=== PATIENT | female | born 1955 | race African-American/Black ===

== ENCOUNTER 2016-12-04 12:54 | Emergency (ER) | payer BC ==
[2016-12-04] MEDS ORDERED: ONDANSETRON HCL INJ/PF 4 MG/2 ML SDV IV ONE (13:15)
[2016-12-04] MEDS ORDERED: NORMAL SALINE 1000 ML 1,000 ML IV PRN (13:15)
--- NOTE | 2016-12-04 13:17 | ER Document Report ---
ED Medical Screen (RME) - General Chief Complaint: Breathing Difficulty Stated Complaint: WEAKNESS/VOMITING Time Seen by Provider: 12/04/16 13:14 Notes: Patient states for approximately 7-8 days she has had increasing weakness dizziness and vomiting. She is also had right upper quadrant abdominal pain. She has had black tarry stool and is been vomiting coffee-ground looking material. She states she drinks 2-3 beers every day. She denies hard liquor. She states she does smoke cigarettes but does not use any marijuana or drugs. She states she has had a previous cholecystectomy. She denies any problems with urination. TRAVEL OUTSIDE OF THE [place] IN LAST 30 DAYS: No - Related Data Allergies/Adverse Reactions: No Known Allergies Allergy (Verified 12/04/16 13:08) Past Medical History - Social History Chew tobacco use (# tins/day): No Frequency of alcohol use: Heavy Drug Abuse: None - Past Medical History Cardiac Medical History: Reports: Hx Hypertension Renal/ Medical History: Denies: Hx Peritoneal Dialysis Psychiatric Medical History: Reports: Hx Depression Past Surgical History: Reports: Hx Cholecystectomy - Immunizations Hx Diphtheria, Pertussis, Tetanus Vaccination: Yes Physical Exam - Vital signs Vitals: Temp Pulse Resp BP Pulse Ox 98.4 F 108 H 16 163/84 H 98 12/04/16 12:58 12/04/16 12:58 12/04/16 12:58 12/04/16 12:58 12/04/16 12:58 Course - Vital Signs Vital signs: Temp Pulse Resp BP Pulse Ox 98.4 F 108 H 16 163/84 H 98 12/04/16 12:58 12/04/16 12:58 12/04/16 12:58 12/04/16 12:58 12/04/16 12:58
[2016-12-04 14:22] LABS: APPEARANCE,URINE CLOUDY; BILIRUBIN,URINE NEGATIVE (NEGATIVE); GLUCOSE, URINE NEGATIVE (NEGATIVE); KETONES,URINE 20 mg/dL (NEGATIVE); LEUKOCYTE ESTERASE,URINE TRACE (NEGATIVE); NITRITE,URINE NEGATIVE (NEGATIVE); PROTEIN,URINE 100 mg/dL (NEGATIVE); URINE SPECIFIC GRAVITY 1.016
[2016-12-04 14:44] LABS: ABSOLUTE LYMPHOCYTES (AUTO) 1.4 10^3/uL (0.5-4.7); ABSOLUTE MONOCYTES (AUTO) 0.4 10^3/uL (0.1-1.4); ABSOLUTE NEUT (AUTO) 4.8 10^3/uL (1.7-8.2); BASOPHILS % (AUTO) 0.4 % (0-2); EOSINOPHILS % (AUTO) 0.1 % (0-6); HEMATOCRIT 43.9 % (36.0-47.0); HEMOGLOBIN 15.1 g/dL (12.0-15.5); HGB HCT DIFFERENCE 1.4; LYMPHOCYTES % (AUTO) 20.8 % (13-45); MEAN CORPUSCULAR HEMOGLOBIN 35.8 pg (27.0-33.4); MEAN CORPUSCULAR HGB CONC 34.3 g/dL (32.0-36.0); MEAN CORPUSCULAR VOLUME 104 fl (80-97); MONOCYTES % (AUTO) 6.2 % (3-13); RED BLOOD COUNT 4.21 10^6/uL (3.72-5.28); RED CELL DISTRIBUTION WIDTH 14.1 % (11.5-14.0); SEGMENTED NEUTROPHILS % (AUTO) 72.5 % (42-78); WHITE BLOOD COUNT 6.6 10^3/uL (4.0-10.5)
[2016-12-04 15:01] LABS: ALANINE AMINOTRANSFERASE 161 U/L (9-52); ALBUMIN 5.2 g/dL (3.5-5.0); ALKALINE PHOSPHATASE 255 U/L (38-126); ASPARTATE AMINO TRANSFERASE 517 U/L (14-36); BILIRUBIN,DIRECT 0.8 mg/dL (0.0-0.4); BILIRUBIN,TOTAL 1.4 mg/dL (0.2-1.3); BLOOD UREA NITROGEN 9 mg/dL (7-20); CALCIUM 9.6 mg/dL (8.4-10.2); CHLORIDE 98 mmol/L (98-107); GLUCOSE 81 mg/dL (75-110); LIPASE 109.2 U/L (23-300); TOTAL PROTEIN 9.1 g/dL (6.3-8.2)
[2016-12-04 15:10] LABS: CARBON DIOXIDE 18 mmol/L (22-30); SODIUM 138.5 mmol/L (137-145)
[2016-12-04 15:14] LABS: ANION GAP 23 (5-19)
--- NOTE | 2016-12-04 15:22 | ER Document Report ---
ED GI/ - General Information source: Patient TRAVEL OUTSIDE OF THE [place] IN LAST 30 DAYS: No - HPI Patient complains to provider of: Abdominal pain Onset: Other - see narrative Location: [facility] Associated symptoms: Other - see narrative <CHELITA RIDDLE - Last Filed: 12/04/16 15:16> <CADE AGUILAR - Last Filed: 12/04/16 17:46> - General Chief Complaint: Breathing Difficulty Stated Complaint: WEAKNESS/VOMITING Time Seen by Provider: 12/04/16 13:14 Notes: Patient is a 61 year old chronic alcoholic that presents to the emergency department today with complaints of dizziness x8 days. Patient states she began vomiting two days ago and noticed it was dark in color. Patient states today she also noticed that the diarrhea she has been having for the last few days turned from a yellowish color to a dark color. Patient also mentions that she has associated right upper quadrant pain. Patient states she has not been using any pepto bismol. (CHELITA RIDDLE) - Related Data Allergies/Adverse Reactions: No Known Allergies Allergy (Verified 12/04/16 13:08) Past Medical History - General Information source: Patient, [facility] Records - Social History Smoking Status: Current Every Day Smoker Cigarette use (# per day): Yes Chew tobacco use (# tins/day): No Frequency of alcohol use: Heavy Drug Abuse: None Family History: Reviewed & Not Pertinent Patient has suicidal ideation: No Patient has homicidal ideation: No - Past Medical History Cardiac Medical History: Reports: Hx Hypertension GI Medical History: Reports: Other - Hx of liver disease Psychiatric Medical History: Reports: Hx Depression Past Surgical History: Reports: Hx Cholecystectomy - Immunizations Hx Diphtheria, Pertussis, Tetanus Vaccination: Yes <CHELITA RIDDLE - Last Filed: 12/04/16 15:16> Review of Systems - Review of Systems Constitutional: No symptoms reported EENT: No symptoms reported Cardiovascular: See HPI, Dizziness Respiratory: No symptoms reported Gastrointestinal: See HPI, Abdominal pain, Diarrhea, Vomiting, Black stools Genitourinary: No symptoms reported Female Genitourinary: No symptoms reported Musculoskeletal: No symptoms reported Skin: No symptoms reported Hematologic/Lymphatic: No symptoms reported Neurological/Psychological: No symptoms reported -: Yes All other systems reviewed and negative <CHELITA RIDDLE - Last Filed: 12/04/16 15:16> Physical Exam <CHELITA RIDDLE - Last Filed: 12/04/16 15:16> <CADE AGUILAR - Last Filed: 12/04/16 17:46> - Vital signs Vitals: Temp Pulse Resp BP Pulse Ox 98.4 F 108 H 16 163/84 H 98 12/04/16 12:58 12/04/16 12:58 12/04/16 12:58 12/04/16 12:58 12/04/16 12:58 - Notes Notes: Physical Exam: General: Alert, appears well. HEENT: Normocephalic. Atraumatic. PERRL. Extraocular movements intact. Oropharynx clear. Neck: Supple. Non-tender. Respiratory: No respiratory distress. Clear and equal breath sounds bilaterally. Cardiovascular: Regular rate and rhythm. Abdominal: Soft, right upper quadrant tenderness with palpation. No distension. Normal Bowel Sounds. Back: Non-tender. No deformity or step off. Extremities: Moves all four extremities. Upper extremities: Normal inspection. Normal ROM. Lower extremities: Normal inspection. No edema. Normal ROM. Neurological: Normal cognition. AAOx4. Normal speech. Psychological: Normal affect. Anxious. Skin: Warm. Dry. Normal color. (CHELITA RIDDLE) Course - Laboratory Result Diagrams: 12/04/16 14:23 12/04/16 14:23 <[email or web address] - Last Filed: 12/04/16 15:16> - Laboratory Result Diagrams: 12/04/16 14:23 12/04/16 14:23 - Consults Dr. Redding Time consulted: 17:35 Consulted provider: follow-up in office <CADE AGUILAR - Last Filed: 12/04/16 17:46> - Re-evaluation Re-evalutation: 12/04/16 17:32 The patient had stated she was vomiting black liquid and had a black stool today. Her Hemoccult stool was negative. Her hemoglobin is 15.1, the same that it was in January 2016. Her liver enzymes are much higher than last January, most likely due to her alcohol consumption. It is unlikely she has a bleeding problem at this time. (CADE AGUILAR) - Vital Signs Vital signs: Temp Pulse Resp BP Pulse Ox 98.4 F 108 H 16 170/96 H 97 12/04/16 12:58 12/04/16 12:58 12/04/16 12:58 12/04/16 16:03 12/04/16 16:03 - Laboratory Laboratory results interpreted by me: 12/04/16 12/04/16 12/04/16 13:47 14:23 14:23 MCV 104 H MCH 35.8 H RDW 14.1 H Plt Count 117 L Carbon Dioxide 18 L Anion Gap 23 H Total Bilirubin 1.4 H Direct Bilirubin 0.8 H AST 517 H ALT 161 H Alkaline Phosphatase 255 H Total Protein 9.1 H Albumin 5.2 H Urine Protein 100 H Urine Ketones 20 H Urine Blood SMALL H Urine Urobilinogen 2.0 H Ur Leukocyte Esterase TRACE H Discharge <CHELITA RIDDLE - Last Filed: 12/04/16 15:16> <CADE AGUILAR - Last Filed: 12/04/16 17:46> - Discharge Clinical Impression: Hepatitis, Right upper quadrant abdominal pain Condition: Stable Disposition: HOME, SELF-CARE Additional Instructions: Alcoholic Hepatitis: You probably have "alcoholic hepatitis". Additional tests will be done to look for other potential causes of your hepatitis You have inflammation of the liver caused by alcohol. Symptoms can include malaise, fatigue, lack of appetite, nausea and vomiting, dark urine, and jaundice. In the long run, alcohol damages the liver to cause cirrhosis. There is no cure for alcoholic hepatitis. The inflammation will go away if you stop drinking. While you are ill, you may receive medication to make you more comfortable. Do not drink alcohol, and don't take any drug or medication not approved by your doctor. Rest and try to eat a healthy diet. Call the doctor if vomiting or abdominal pain become severe. Your blood levels were normal and unchanged from January of last year. Your stool specimen was negative for blood. It is unlikely that you have had any bleeding from your gastrointestinal tract. Your evaluation does indicate inflammation of the liver, called hepatitis. Your hepatitis is most likely caused by alcohol consumption. STOP DRINKING ALCOHOL. FOLLOW UP WITH DR. REDDING IN THE OFFICE. RETURN TO THE EMERGENCY ROOM IF ANY NEW OR WORSENING SYMPTOMS. Forms: Return to Work Referrals: АЛЕКСАНДР REDDING MD [Primary Care Provider] - Follow up in 3-5 days Scribe Attestation: 12/04/16 17:43 I personally performed the services described in the documentation, reviewed and edited the documentation which was dictated to the scribe in my presence, and it accurately records my words and actions. (CADE AGUILAR) Scribe Documentation - Scribe Written by Scribe:: Lesli Arevalo, 12/04/2016 1535 acting as scribe for :: Fabrizio <CHELITA RIDDLE - Last Filed: 12/04/16 15:16>
[2016-12-04 15:29] LABS: ADD ON TESTING BLD IN LAB ACKNOWLEDGE
[2016-12-04 15:38] LABS: PROTHROMBIN TIME 13.5 SEC (11.4-15.4)
[2016-12-04 15:50] LABS: ALCOHOL 55 mg/dL (NONE DETECTED)
[2016-12-04 17:49] VITALS: BP 167/100
== END 2016-12-04 17:50 | disposition home or self-care (01) ==
LOC: ER 12:54
DX: K75.9 Inflammatory liver disease, unspecified (principal); R10.11 Right upper quadrant pain; R06.00 Dyspnea, unspecified; R42 Dizziness and giddiness; R11.10 Vomiting, unspecified; F17.210 Nicotine dependence, cigarettes, uncomplicated; I10 Essential (primary) hypertension; Z90.49 Acquired absence of other specified parts of digestive tract
CPT/HCPCS: 99285; 96361; 96374; 36415; 80307; 83690; 85025; 85610; 82272; 80053; 81001; J2405; J7030

== ENCOUNTER 2018-04-16 08:43 | Inpatient (IN) | payer SELFPAY ==
--- NOTE | 2018-04-16 09:36 | ER Document Report ---
ED General - General Chief Complaint: Abdominal Pain Stated Complaint: NAUSEA Time Seen by Provider: 04/16/18 09:14 Notes: Patient is a 63-year-old female who is complaining of problems with her digestion. When pressed on that complaint, she says that she is having a hard time having bowel movements and is constipated and that is why she says she has digestive problems. She says she is been taking Metamucil with no relief of her symptoms. She did have a very small strained bowel movement this morning. She complains of pain in her "liver" but points to her epigastrium for about 3 weeks. She has had her gallbladder removed. She feels weak all day long. Patient has a history of depression for which she is seen at [facility] and is on some medication but does not know the name, believed to be trazodone 50 mg to take at bedtime. She says she has vomited a couple times during the past week. No blood in her stools. Has frequent urination. Denies any fevers. For her blood pressure, patient is on lisinopril with HCTZ. Patient has not had any alcohol for 45 days. Still smokes 4 or 5 cigarettes a day. TRAVEL OUTSIDE OF THE [place] IN LAST 30 DAYS: No - Related Data Allergies/Adverse Reactions: No Known Allergies Allergy (Verified 04/16/18 08:49) Past Medical History - Social History Smoking Status: Current Every Day Smoker Family History: Reviewed & Not Pertinent Patient has suicidal ideation: No Patient has homicidal ideation: No - Past Medical History Cardiac Medical History: Reports: Hx Hypertension Endocrine Medical History: Denies: Hx Diabetes Mellitus Type 1, Hx Diabetes Mellitus Type 2 Psychiatric Medical History: Reports: Hx Depression Past Surgical History: Reports: Hx Cholecystectomy - Immunizations Hx Diphtheria, Pertussis, Tetanus Vaccination: Yes Review of Systems - Review of Systems Notes: REVIEW OF SYSTEMS: CONSTITUTIONAL : Denies fever. EENT: Denies eye, ear, nose or mouth or throat pain or other symptoms. CARDIOVASCULAR: Denies chest pain. RESPIRATORY: Denies cough, chest congestion, or shortness of breath. GASTROINTESTINAL: See HPI. GENITOURINARY: Denies difficulty or painful urinating, blood in urine. Does urinate frequently. MUSCULOSKELETAL: Denies back or neck pain. Denies joint pain or swelling. SKIN: Denies rash or skin lesions. NEUROLOGICAL: Denies LOC or altered mental status. Denies headache. Denies sensory loss or motor deficits. ALL OTHER SYSTEMS REVIEWED AND NEGATIVE. Physical Exam - Vital signs Vitals: Temp Pulse Resp BP Pulse Ox 97.6 F 94 18 88/51 L 100 04/16/18 08:50 04/16/18 08:50 04/16/18 08:50 04/16/18 08:50 04/16/18 08:50 Interpretation: Normal Notes: PHYSICAL EXAMINATION: GENERAL: Well-appearing, in no acute distress. Blood pressure 88/51. HEAD: Atraumatic, normocephalic. EYES: Pupils equal round and reactive to light, extraocular movements intact. ENT: oropharynx clear without exudates. Moist mucous membranes. NECK: Normal range of motion, supple. LUNGS: Breath sounds clear and equal bilaterally. HEART: Regular rate and rhythm without murmurs. ABDOMEN: Soft, nontender. No guarding or rebound. No masses. BACK: No tenderness throughout entire back. EXTREMITIES: Normal range of motion without pain. NEUROLOGICAL: Normal speech, normal gait. Normal sensory, motor, and reflex exams. Awake, alert, and oriented x3. Cranial nerves normal. PSYCH: Normal mood, normal affect. SKIN: Warm, dry, no rashes. Course - Re-evaluation Re-evalutation: 04/16/18 11:51 Patient's blood pressure responded quickly to some saline IV. It went up to about 110 systolic and stayed in that area the rest of the time the patient was here in the department. Labs came back showing blood sugar of over 600. Lipase in the mid 400s. Sodium and chloride low. Call Dr. Iraheta who accepted the patient and admit to telemetry. - Vital Signs Vital signs: Temp Pulse Resp BP Pulse Ox 97.6 F 94 19 103/59 L 100 04/16/18 08:50 04/16/18 08:50 04/16/18 12:31 04/16/18 12:31 04/16/18 12:31 - Laboratory Result Diagrams: 04/16/18 10:20 04/16/18 10:20 Laboratory results interpreted by me: 04/16/18 04/16/18 04/16/18 10:20 10:20 10:45 WBC 12.0 H MCV 98 H Absolute Neutrophils 8.6 H Sodium 127.7 L Chloride 85 L BUN 35 H Est GFR ( Amer) 58 L Est GFR (Non-Af Amer) 48 L Glucose 636 H* Calcium 11.9 H Direct Bilirubin 0.5 H AST 44 H Alkaline Phosphatase 141 H Lipase 464.5 H Urine Glucose (UA) >=500 H Urine Ketones TRACE H Ur Leukocyte Esterase SMALL H Urine Ascorbic Acid 40 H - EKG Interpretation by Nc EKG shows normal: Sinus rhythm Rate: Normal Critical Care Note - Critical Care Note Total time excluding time spent on procedures (mins): 30 Discharge - Discharge Clinical Impression: Hyperglycemia, Hyponatremia, Hypotension Condition: Stable Disposition: ADMITTED INPATIENT Admitting Provider: [facility] Unit Admitted: Telemetry
--- NOTE | 2018-04-16 10:26 | RADIOLOGY REPORT (SQ) ---
EXAM DESCRIPTION: CHEST 2 VIEWS COMPLETED DATE/TIME: 04/16/2018 10:02 am REASON FOR STUDY: Epigastric pain, smoker COMPARISON: 05/10/2009 EXAM PARAMETERS: NUMBER OF VIEWS: two views TECHNIQUE: Digital Frontal and Lateral radiographic views of the chest acquired. RADIATION DOSE: NA LIMITATIONS: none FINDINGS: LUNGS AND PLEURA: No opacities, masses or pneumothorax. No pleural effusion. MEDIASTINUM AND HILAR STRUCTURES: No masses or contour abnormalities. HEART AND VASCULAR STRUCTURES: Heart normal size. No evidence for failure. BONES: No acute findings. HARDWARE: None in the chest. OTHER: No other significant finding. IMPRESSION: NO ACUTE RADIOGRAPHIC FINDING IN THE CHEST. TECHNICAL DOCUMENTATION: JOB ID: [id number]- All Rights Reserved Reading location - IP/workstation name: [email or web address]
[2018-04-16] MEDS: NORMAL SALINE 1000 ML 1,000 ML IV PRN ×3 (10:32→14:40)
[2018-04-16 10:44] LABS: ABSOLUTE BASOPHILS # (AUTO) 0.1 10^3/uL (0.0-0.2); ABSOLUTE EOSINOPHILS # (AUTO) 0.4 10^3/uL (0.0-0.6); ABSOLUTE LYMPHOCYTES (AUTO) 2.3 10^3/uL (0.5-4.7); ABSOLUTE MONOCYTES (AUTO) 0.5 10^3/uL (0.1-1.4); ABSOLUTE NEUT (AUTO) 8.6 10^3/uL (1.7-8.2); BASOPHILS % (AUTO) 0.7 % (0-2); EOSINOPHILS % (AUTO) 3.4 % (0-6); HEMATOCRIT 45.1 % (36.0-47.0); HEMOGLOBIN 15.3 g/dL (12.0-15.5); LYMPHOCYTES % (AUTO) 19.4 % (13-45); MEAN CORPUSCULAR HEMOGLOBIN 33.4 pg (27.0-33.4); MEAN CORPUSCULAR HGB CONC 33.9 g/dL (32.0-36.0); MEAN CORPUSCULAR VOLUME 98 fl (80-97); MONOCYTES % (AUTO) 4.5 % (3-13); PLATELET COUNT 201 10^3/uL (150-450); RED BLOOD COUNT 4.59 10^6/uL (3.72-5.28); TOTAL CELLS COUNTED % (AUTO) 100 %
[2018-04-16 10:51] LABS: INTERNATIONAL RATION (INR) 1.08; PROTHROMBIN TIME 14.5 SEC (11.4-15.4)
[2018-04-16 11:05] LABS: ALANINE AMINOTRANSFERASE 29 U/L (9-52); ALBUMIN 4.5 g/dL (3.5-5.0); ALKALINE PHOSPHATASE 141 U/L (38-126); ANION GAP 16 (5-19); ASPARTATE AMINO TRANSFERASE 44 U/L (14-36); BILIRUBIN,DIRECT 0.5 mg/dL (0.0-0.4); BILIRUBIN,TOTAL 0.8 mg/dL (0.2-1.3); BLOOD UREA NITROGEN 35 mg/dL (7-20); CALCIUM 11.9 mg/dL (8.4-10.2); CARBON DIOXIDE 27 mmol/L (22-30); CHLORIDE 85 mmol/L (98-107); LIPASE 464.5 U/L (23-300); POTASSIUM 4.6 mmol/L (3.6-5.0); SODIUM 127.7 mmol/L (137-145); TOTAL PROTEIN 7.9 g/dL (6.3-8.2)
[2018-04-16 11:06] LABS: ALCOHOL < 10 mg/dL (NONE DETECTED)
[2018-04-16 11:12] LABS: APPEARANCE,URINE CLOUDY; BILIRUBIN,URINE NEGATIVE (NEGATIVE); COLOR,URINE AMBER; GLUCOSE, URINE >=500 mg/dL (NEGATIVE); KETONES,URINE TRACE mg/dL (NEGATIVE); LEUKOCYTE ESTERASE,URINE SMALL (NEGATIVE); NITRITE,URINE NEGATIVE (NEGATIVE); PROTEIN,URINE NEGATIVE (NEGATIVE); URINE SPECIFIC GRAVITY 1.018; UROBILINOGEN,URINE NEGATIVE mg/dL (<2.0)
[2018-04-16 11:14] LABS: GLUCOSE 636 mg/dL (75-110)
[2018-04-16 11:17] LABS: CREATINE KINASE MB 3.51 ng/mL (<4.55)
[2018-04-16 11:18] LABS: TROPONIN I 0.042 ng/mL
[2018-04-16 11:23] LABS: URINE AMPHETAMINES SCREEN NEGATIVE; URINE BARBITURATES SCREEN NEGATIVE; URINE BENZODIAZEPINES SCREEN NEGATIVE; URINE COCAINE SCREEN NEGATIVE; URINE MARIJUANA (THC) SCREEN NEGATIVE; URINE METHADONE SCREEN NEGATIVE; URINE PHENCYCLIDINE SCREEN NEGATIVE
[2018-04-16] MEDS ORDERED: INSULIN REG, HUMAN 100 UNIT/ML 3 ML VIAL (PYX) IV ONE (11:50)
--- NOTE | 2018-04-16 12:45 | EKG REPORT ---
SEVERITY:- BORDERLINE ECG - SINUS RHYTHM BORDERLINE PROLONGED QT INTERVAL : Confirmed by: Mathieu Dempsey MD 16-Apr-2018 12:44:13
[2018-04-16] MEDS ORDERED: INSULIN REG, HUMAN 100 UNIT/ML 3 ML VIAL (PYX) SUBCUT PRN (17:59)
[2018-04-16] MEDS ORDERED: DEXTROSE 40% GEL 15 GM TUBE PO PRN ×4 (17:59→20:54)
[2018-04-16] MEDS ORDERED: DEXTROSE 50%-WATER 25 GM/50 ML DISP.SYRIN IV PRN ×4 (17:59→20:54)
[2018-04-16] MEDS ORDERED: GLUCAGON,HUMAN RECOMB 1 MG INJ IM PRN ×2 (17:59→20:54)
--- NOTE | 2018-04-16 20:42 | PDOC H&P ---
History of Present Illness Admission Date/PCP: 04/16/18 12:05 АЛЕКСАНДР REDDING MD History of Present Illness: VELMA MACDONALD is a 63 year old female, she is very noncompliant the last office visit is over a year ago, she came to the emergency room for evaluation of abdominal pain, constipation she stated to the ED physician that she has been taking Metamucil without relief of her symptoms, she says she has liver pain but she pointed to the epigastrium, she has alcohol and tobacco use disorder, she stated that the last time she took alcohol was 45 days ago. In the emergency room she was evaluated she was found to have a low blood pressure and the blood sugar recorded was 636, she has no history of diabetes mellitus, also found was severe hyponatremia. When I saw her on the floor she looks extremely emaciated she has lost a lot of weight, the body mass index is 12, the weight loss could not be explained on the basis of diabetes by itself I suspected that she may have a malignancy of some sort especially with history of alcohol and tobacco abuse. I requested for CT abdomen and pelvis with IV contrast, it demonstrated fatty infiltration of the liver, slightly nodular contour suspicious for liver cirrhosis. The spleen and adrenal glands were unremarkable also found was multiple calcifications of the pancreas consistent with chronic pancreatitis the body and tail of the pancreas was atrophic there was a poorly defined hypodensity in the region of the pancreatic head that measured 1.8 x 2.3 cm findings was said to be suspicious for neoplasm there was extra hepatic biliary duct dilatation the kidneys are unremarkable there is a large amount of stool in the colon. The serum lipase was 464 not overly elevated. Past Medical History Cardiac Medical History: Reports: Hypertension Endocrine Medical History: Reports: Diabetes Mellitus Type 2 Psychiatric Medical History: Reports: Depression Past Surgical History Past Surgical History: Reports: Cholecystectomy Social History Smoking Status: Current Every Day Smoker Cigarettes Packs Per Day: 0.2 Cigars Per Day: 0 Pipes Per Day: 0 Number of Years Smokin Last Time Smoked: 04/16/2018 Frequency of Alcohol Use: Heavy Hx Recreational Drug Use: No Drugs: None Hx Prescription Drug Abuse: No - Advance Directive Resuscitation Status: Full Code Family History Family History: Reviewed & Not Pertinent Parental Family History Reviewed: Yes Children Family History Reviewed: Yes Sibling(s) Family History Reviewed.: Yes Medication/Allergy Home Medications: Lisinopril/Hydrochlorothiazide [Lisinopril-Hctz 20-25 mg Tab] 1 tab PO DAILY 04/16/18 Trazodone HCl [Desyrel 50 mg Tablet] 50 mg PO QHS 04/16/18 Allergies/Adverse Reactions: No Known Allergies Allergy (Verified 04/16/18 08:49) Physical Exam Vital Signs: Temp Pulse Resp BP Pulse Ox 98.8 F 82 18 97/60 L 98 04/16/18 19:51 04/16/18 19:51 04/16/18 19:51 04/16/18 19:51 04/16/18 19:51 Intake & Output 04/15/18 04/16/18 04/17/18 06:59 06:59 06:59 Intake Total 1999 Balance 1999 Weight 33.8 kg General appearance: PRESENT: no acute distress, thin Eye exam: PRESENT: PERRLA Respiratory exam: PRESENT: clear to auscultation neelam Cardiovascular exam: PRESENT: +S1, +S2 GI/Abdominal exam: PRESENT: soft Neurological exam: PRESENT: alert Results Laboratory Results: 04/16/18 10:20 04/16/18 10:20 04/16/18 04/16/18 04/16/18 10:20 10:20 10:20 WBC 12.0 H RBC 4.59 Hgb 15.3 Hct 45.1 MCV 98 H MCH 33.4 MCHC 33.9 RDW 13.0 Plt Count 201 Seg Neutrophils % 72.0 Lymphocytes % 19.4 Monocytes % 4.5 Eosinophils % 3.4 Basophils % 0.7 Absolute Neutrophils 8.6 H Absolute Lymphocytes 2.3 Absolute Monocytes 0.5 Absolute Eosinophils 0.4 Absolute Basophils 0.1 Sodium 127.7 L Potassium 4.6 Chloride 85 L Carbon Dioxide 27 Anion Gap 16 BUN 35 H Creatinine 1.14 Est GFR ( Amer) 58 L Est GFR (Non-Af Amer) 48 L Glucose 636 H* Lactic Acid 1.8 Calcium 11.9 H Total Bilirubin 0.8 AST 44 H ALT 29 Alkaline Phosphatase 141 H Total Protein 7.9 Albumin 4.5 Lipase 464.5 H Urine Color Urine Appearance Urine pH Ur Specific [place] Urine Protein Urine Glucose (UA) Urine Ketones Urine Blood Urine Nitrite Ur Leukocyte Esterase Urine WBC (Auto) Urine RBC (Auto) 04/16/18 10:45 WBC RBC Hgb Hct MCV MCH MCHC RDW Plt Count Seg Neutrophils % Lymphocytes % Monocytes % Eosinophils % Basophils % Absolute Neutrophils Absolute Lymphocytes Absolute Monocytes Absolute Eosinophils Absolute Basophils Sodium Potassium Chloride Carbon Dioxide Anion Gap BUN Creatinine Est GFR ( Amer) Est GFR (Non-Af Amer) Glucose Lactic Acid Calcium Total Bilirubin AST ALT Alkaline Phosphatase Total Protein Albumin Lipase Urine Color [place] Urine Appearance CLOUDY Urine pH 6.0 Ur Specific [place] 1.018 Urine Protein NEGATIVE Urine Glucose (UA) >=500 H Urine Ketones TRACE H Urine Blood NEGATIVE Urine Nitrite NEGATIVE Ur Leukocyte Esterase SMALL H Urine WBC (Auto) 15 Urine RBC (Auto) 3 04/16/18 10:20 CK-MB (CK-2) 3.51 Troponin I 0.042 Impressions: Chest X-Ray 04/16/18 09:34 IMPRESSION: NO ACUTE RADIOGRAPHIC FINDING IN THE CHEST. 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 She may need ERCP for diagnostic purposes (5) Hyponatremia Is this a current diagnosis for this admission?: Yes (6) Liver cirrhosis Qualifiers: Hepatic cirrhosis type: alcoholic cirrhosis Ascites presence: without ascites Qualified Code(s): K70.30 - Alcoholic cirrhosis of liver without ascites Is this a current diagnosis for this admission?: Yes (7) Alcohol abuse Is this a current diagnosis for this admission?: Yes (8) Chronic alcoholic pancreatitis Is this a current diagnosis for this admission?: Yes
[2018-04-16 21:37] LABS: ANION GAP 8 (5-19); BLOOD UREA NITROGEN 24 mg/dL (7-20); CALCIUM 10.7 mg/dL (8.4-10.2); CARBON DIOXIDE 26 mmol/L (22-30); CHLORIDE 98 mmol/L (98-107); SODIUM 132.4 mmol/L (137-145)
[2018-04-16 21:56] LABS: POTASSIUM 3.2 mmol/L (3.6-5.0)
--- NOTE | 2018-04-16 21:57 | RADIOLOGY REPORT (SQ) ---
EXAM DESCRIPTION: CT ABDOMEN PELVIS WITH IV CONTRAST COMPLETED DATE/TME: 04/16/2018 00:00 CLINICAL HISTORY: 63 years, Female, SIGNIFICANT WEIGHT LOSS COMPARISON: None. TECHNIQUE: [id number] Images stored on PACS. All CT scanners at this facility use dose modulation, iterative reconstruction, and/or weight based dosing when appropriate to reduce radiation dose to as low as reasonably achievable (ALARA). [facility]: Dose Right [facility]: CareDose [facility]: Dose Right [facility]: Teradose 4D [facility]: AVIA LIMITATIONS: None. FINDINGS: Limited evaluation of the lung bases is unremarkable. Osseous structures are grossly intact. Fatty infiltrative change to the liver. Slightly nodular contour to the liver for which early cirrhotic change is not excluded. The spleen, adrenal glands, are unremarkable. Multiple calcifications of the pancreas consistent with chronic pancreatitis. Atrophic appearance to the body and tail of the pancreas. There is significant motion artifact, degrading image quality. However, a poorly defined hypodensity in the region of the pancreatic head measuring approximately 1.8 x 2.6 cm is present. Findings are suspicious for neoplasm. There is extra hepatic biliary ductal dilatation. The patient is status post cholecystectomy. The kidneys are unremarkable. Large amount stool in the colon. No gross evidence for bowel obstruction. Normal appendix. No free air. Small amount of ascites. Distended, fluid-filled appearance to the endometrial canal. Clinical follow-up recommended. No free air. Nonenlarged but conspicuous periaortic lymph nodes.. IMPRESSION: Fatty infiltrate of change to the liver. Slightly nodular contour to the liver for tissue early cirrhotic change is not excluded. Atrophic appearance to the body and tail of the pancreas. Point defined hypodensity in the region of the pancreatic head. This could reflect complex pseudocyst or cystadenoma. An inflammatory process of the pancreas could also be considered. Correlate with pancreatic enzyme levels. Malignancy not excluded. There is biliary ductal dilatation. Multiple calcifications of the pancreas consistent with chronic pancreatitis. Given these findings, consider dedicated MRCP or ERCP for follow-up. In addition, there is distended, fluid-filled appearance to the endocervical canal. Gynecologic follow-up is recommended. Small volume of ascites. TECHNICAL DOCUMENTATION: Quality ID # [id number]: Final reports with documentation of one or more dose reduction techniques (e.g., Automated exposure control, adjustment of the mA and/or kV according to patient size, use of iterative reconstruction technique) copyright 2011 [employer]- All Rights Reserved
[2018-04-16 21:58] LABS: GLUCOSE 527 mg/dL (75-110)
[2018-04-16] MEDS: TRAZODONE HCL 50 MG TABLET PO SCH (22:06)
[2018-04-16] MEDS: NORMAL SALINE 100 ML with INSULIN REGULAR, HUMAN 100 UNIT IV PRN ×2 (22:22)
[2018-04-17 01:33] LABS: ANION GAP 8 (5-19); BLOOD UREA NITROGEN 24 mg/dL (7-20); CALCIUM 10.6 mg/dL (8.4-10.2); CARBON DIOXIDE 26 mmol/L (22-30); CHLORIDE 100 mmol/L (98-107); GLUCOSE 343 mg/dL (75-110); POTASSIUM 3.1 mmol/L (3.6-5.0); SODIUM 133.7 mmol/L (137-145)
[2018-04-17] MEDS: NORMAL SALINE 1000 ML 1,000 ML IV PRN ×3 (02:18→17:56)
[2018-04-17 07:16] LABS: ANION GAP 8 (5-19); BLOOD UREA NITROGEN 23 mg/dL (7-20); CALCIUM 10.5 mg/dL (8.4-10.2); CARBON DIOXIDE 26 mmol/L (22-30); CHLORIDE 106 mmol/L (98-107); GLUCOSE 147 mg/dL (75-110); POTASSIUM 3.3 mmol/L (3.6-5.0); SODIUM 139.8 mmol/L (137-145)
[2018-04-17 11:24] LABS: ANION GAP 7 (5-19); BLOOD UREA NITROGEN 20 mg/dL (7-20); CALCIUM 10.5 mg/dL (8.4-10.2); CARBON DIOXIDE 26 mmol/L (22-30); CHLORIDE 104 mmol/L (98-107); GLUCOSE 282 mg/dL (75-110); SODIUM 137.1 mmol/L (137-145)
[2018-04-17 11:28] LABS: POTASSIUM 2.9 mmol/L (3.6-5.0)
[2018-04-17] MEDS: POTASSIUM CHLORIDE 10 MEQ CAPSULE.ER PO SCH ×3 (14:48→21:47)
[2018-04-17 15:18] LABS: ANION GAP 7 (5-19); BLOOD UREA NITROGEN 18 mg/dL (7-20); CARBON DIOXIDE 25 mmol/L (22-30); CHLORIDE 103 mmol/L (98-107); GLUCOSE 318 mg/dL (75-110); SODIUM 134.8 mmol/L (137-145)
[2018-04-17 15:23] LABS: POTASSIUM 2.7 mmol/L (3.6-5.0)
[2018-04-17 17:45] LABS: ANION GAP 5 (5-19); BLOOD UREA NITROGEN 19 mg/dL (7-20); CALCIUM 10.4 mg/dL (8.4-10.2); CARBON DIOXIDE 30 mmol/L (22-30); CHLORIDE 105 mmol/L (98-107); GLUCOSE 96 mg/dL (75-110); SODIUM 139.8 mmol/L (137-145)
--- NOTE | 2018-04-17 18:00 | PDOC PROGRESS REPORT ---
Subjective Progress Note for:: 04/17/18 Subjective:: She was admitted yesterday, I had a long discussion with the patient about her prognosis and diagnosis, she has a mass in the pancreas most likely is neoplasm, there is associated hypercalcemia with a low serum PTH consistent with hypercalcemia of malignancy, the serum calcium today is normalized with hydration, she will need ERCP, GI consultation will be obtained Reason For Visit: HYPERGLYCEMIA,HYPONATREMIA,HYPOTENSION Physical Exam Vital Signs: Temp Pulse Resp BP Pulse Ox 98.7 F 78 18 108/54 L 97 04/17/18 14:33 04/17/18 14:33 04/17/18 14:33 04/17/18 14:33 04/17/18 14:33 Intake & Output 04/16/18 04/17/18 04/18/18 06:59 06:59 06:59 Intake Total 3537 2353 Balance 3537 2353 Weight 33.8 kg General appearance: PRESENT: no acute distress Eye exam: PRESENT: PERRLA Respiratory exam: PRESENT: clear to auscultation neelam Cardiovascular exam: PRESENT: +S1 GI/Abdominal exam: PRESENT: soft Neurological exam: PRESENT: alert Results Laboratory Results: 04/16/18 10:20 04/16/18 04/16/18 04/17/18 21:08 21:08 00:58 Sodium 132.4 L 133.7 L Potassium 3.2 L D 3.1 L Chloride 98 100 Carbon Dioxide 26 26 Anion Gap 8 8 BUN 24 H 24 H Creatinine 0.79 0.74 Est GFR ( Amer) > 60 > 60 Est GFR (Non-Af Amer) > 60 > 60 Glucose 527 H* 343 H Calcium 10.7 H 10.6 H PTH Intact 4.8 L 04/17/18 04/17/18 04/17/18 06:48 10:45 14:42 Sodium 139.8 137.1 134.8 L Potassium 3.3 L 2.9 L* 2.7 L* Chloride 106 104 103 Carbon Dioxide 26 26 25 Anion Gap 8 7 7 BUN 23 H 20 18 Creatinine 0.72 0.71 0.70 Est GFR ( Amer) > 60 > 60 > 60 Est GFR (Non-Af Amer) > 60 > 60 > 60 Glucose 147 H 282 H 318 H Calcium 10.5 H 10.5 H 10.0 PTH Intact 04/16/18 10:45 Clean Catch Midstream Urine Culture - Final Mixed Urogenital Olga 04/16/18 10:20 CK-MB (CK-2) 3.51 Troponin I 0.042 Impressions: Abdomen/Pelvis CT 04/16/18 00:00 IMPRESSION: Fatty infiltrate of change to the liver. Slightly nodular contour to the liver for tissue early cirrhotic change is not excluded. Atrophic appearance to the body and tail of the pancreas. Point defined hypodensity in the region of the pancreatic head. This could reflect complex pseudocyst or cystadenoma. An inflammatory process of the pancreas could also be considered. Correlate with pancreatic enzyme levels. Malignancy not excluded. There is biliary ductal dilatation. Multiple calcifications of the pancreas consistent with chronic pancreatitis. Given these findings, consider dedicated MRCP or ERCP for follow-up. In addition, there is distended, fluid-filled appearance to the endocervical canal. Gynecologic follow-up is recommended. Small volume of ascites. TECHNICAL DOCUMENTATION: Quality ID # 436: Final reports with documentation of one or more dose reduction techniques (e.g., Automated exposure control, adjustment of the mA and/or kV according to patient size, use of iterative reconstruction technique) copyright 2011 [employer]- All Rights Reserved Chest X-Ray 04/16/18 09:34 IMPRESSION: NO ACUTE RADIOGRAPHIC FINDING IN THE CHEST. 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 (2) Hyperosmolar non-ketotic state in patient with type 2 diabetes mellitus Is this a current diagnosis for this admission?: Yes Plan: Continue hydration (3) Newly diagnosed diabetes Is this a current diagnosis for this admission?: Yes Plan: Continue insulin drip (4) Pancreatic mass Is this a current diagnosis for this admission?: Yes Plan: Patient need ERCP (5) Hyponatremia Is this a current diagnosis for this admission?: Yes Plan: Corrected with hydration (6) Liver cirrhosis Qualifiers: Hepatic cirrhosis type: alcoholic cirrhosis Ascites presence: without ascites Qualified Code(s): K70.30 - Alcoholic cirrhosis of liver without ascites Is this a current diagnosis for this admission?: Yes (7) Alcohol abuse Is this a current diagnosis for this admission?: Yes (8) Chronic alcoholic pancreatitis Is this a current diagnosis for this admission?: Yes (9) Hypercalcemia Is this a current diagnosis for this admission?: Yes Plan: PTH low ,this is probably cancer related
[2018-04-17] MEDS ORDERED: NYSTATIN CREAM 15 GM TP PRN (18:14)
[2018-04-17 18:28] LABS: POTASSIUM 2.9 mmol/L (3.6-5.0)
[2018-04-17 21:40] LABS: ANION GAP 8 (5-19); BLOOD UREA NITROGEN 17 mg/dL (7-20); CALCIUM 10.3 mg/dL (8.4-10.2); CARBON DIOXIDE 24 mmol/L (22-30); CHLORIDE 104 mmol/L (98-107); GLUCOSE 260 mg/dL (75-110); POTASSIUM 3.7 mmol/L (3.6-5.0); SODIUM 136.1 mmol/L (137-145)
[2018-04-17] MEDS: TRAZODONE HCL 50 MG TABLET PO SCH (21:47)
[2018-04-17] MEDS: NORMAL SALINE 100 ML with INSULIN REGULAR, HUMAN 100 UNIT IV PRN ×2 (23:44)
[2018-04-18 01:11] LABS: ANION GAP 7 (5-19); BLOOD UREA NITROGEN 15 mg/dL (7-20); CALCIUM 10.3 mg/dL (8.4-10.2); CARBON DIOXIDE 25 mmol/L (22-30); CHLORIDE 108 mmol/L (98-107); GLUCOSE 147 mg/dL (75-110); POTASSIUM 3.8 mmol/L (3.6-5.0); SODIUM 140.2 mmol/L (137-145)
[2018-04-18 06:28] LABS: ANION GAP 6 (5-19); BLOOD UREA NITROGEN 14 mg/dL (7-20); CALCIUM 9.9 mg/dL (8.4-10.2); CARBON DIOXIDE 24 mmol/L (22-30); CHLORIDE 111 mmol/L (98-107); GLUCOSE 124 mg/dL (75-110); POTASSIUM 3.7 mmol/L (3.6-5.0); SODIUM 140.9 mmol/L (137-145)
[2018-04-18 10:00] LABS: ANION GAP 6 (5-19); BLOOD UREA NITROGEN 13 mg/dL (7-20); CALCIUM 10.2 mg/dL (8.4-10.2); CARBON DIOXIDE 22 mmol/L (22-30); CHLORIDE 112 mmol/L (98-107); GLUCOSE 174 mg/dL (75-110); SODIUM 140.3 mmol/L (137-145)
[2018-04-18] MEDS: NORMAL SALINE 1000 ML 1,000 ML IV PRN ×2 (13:27→21:16)
[2018-04-18 14:06] LABS: ANION GAP 8 (5-19); BLOOD UREA NITROGEN 13 mg/dL (7-20); CARBON DIOXIDE 23 mmol/L (22-30); CHLORIDE 108 mmol/L (98-107); GLUCOSE 236 mg/dL (75-110); POTASSIUM 4.1 mmol/L (3.6-5.0); SODIUM 139.3 mmol/L (137-145)
--- NOTE | 2018-04-18 15:48 | PDOC PROGRESS REPORT ---
Subjective Progress Note for:: 04/18/18 Subjective:: Patient was seen by the bedside, she has no new complaints Reason For Visit: HYPERGLYCEMIA,HYPONATREMIA,HYPOTENSION Physical Exam Vital Signs: Temp Pulse Resp BP Pulse Ox 98.5 F 85 18 96/57 L 100 04/18/18 04:05 04/18/18 14:00 04/18/18 04:05 04/18/18 04:05 04/18/18 04:05 Intake & Output 04/17/18 04/18/18 04/19/18 06:59 06:59 06:59 Intake Total 3537 3422 1010 Balance 3537 3422 1010 Weight 33.8 kg 62.9 kg General appearance: PRESENT: no acute distress Eye exam: PRESENT: PERRLA Respiratory exam: PRESENT: clear to auscultation neelam Cardiovascular exam: PRESENT: +S1, +S2 GI/Abdominal exam: PRESENT: soft Neurological exam: PRESENT: alert Results Laboratory Results: 04/16/18 10:20 04/18/18 13:15 04/17/18 04/17/18 04/18/18 17:05 21:15 00:42 Sodium 139.8 136.1 L 140.2 Potassium 2.9 L* 3.7 3.8 Chloride 105 104 108 H Carbon Dioxide 30 24 25 Anion Gap 5 8 7 BUN 19 17 15 Creatinine 0.70 0.63 0.65 Est GFR ( Amer) > 60 > 60 > 60 Est GFR (Non-Af Amer) > 60 > 60 > 60 Glucose 96 260 H 147 H Calcium 10.4 H 10.3 H 10.3 H 04/18/18 04/18/18 04/18/18 05:09 09:13 13:15 Sodium 140.9 140.3 139.3 Potassium 3.7 4.0 4.1 Chloride 111 H 112 H 108 H Carbon Dioxide 24 22 23 Anion Gap 6 6 8 BUN 14 13 13 Creatinine 0.67 0.62 0.69 Est GFR ( Amer) > 60 > 60 > 60 Est GFR (Non-Af Amer) > 60 > 60 > 60 Glucose 124 H 174 H 236 H Calcium 9.9 10.2 10.0 04/16/18 10:20 CK-MB (CK-2) 3.51 Troponin I 0.042 Impressions: Abdomen/Pelvis CT 04/16/18 00:00 IMPRESSION: Fatty infiltrate of change to the liver. Slightly nodular contour to the liver for tissue early cirrhotic change is not excluded. Atrophic appearance to the body and tail of the pancreas. Point defined hypodensity in the region of the pancreatic head. This could reflect complex pseudocyst or cystadenoma. An inflammatory process of the pancreas could also be considered. Correlate with pancreatic enzyme levels. Malignancy not excluded. There is biliary ductal dilatation. Multiple calcifications of the pancreas consistent with chronic pancreatitis. Given these findings, consider dedicated MRCP or ERCP for follow-up. In addition, there is distended, fluid-filled appearance to the endocervical canal. Gynecologic follow-up is recommended. Small volume of ascites. TECHNICAL DOCUMENTATION: Quality ID # 436: Final reports with documentation of one or more dose reduction techniques (e.g., Automated exposure control, adjustment of the mA and/or kV according to patient size, use of iterative reconstruction technique) copyright 2011 [employer]- All Rights Reserved Chest X-Ray 04/16/18 09:34 IMPRESSION: NO ACUTE RADIOGRAPHIC FINDING IN THE CHEST. 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, she would need insulin replacement therapy, start Lantus (2) Hyperosmolar non-ketotic state in patient with type 2 diabetes mellitus Is this a current diagnosis for this admission?: Yes Plan: Discontinue insulin drip, start Lantus (3) Newly diagnosed diabetes Is this a current diagnosis for this admission?: Yes (4) Pancreatic mass Is this a current diagnosis for this admission?: Yes Plan: She would need ERCP with tissue diagnosis (5) Hyponatremia Is this a current diagnosis for this admission?: Yes Plan: This is resolved (6) Liver cirrhosis Qualifiers: Hepatic cirrhosis type: alcoholic cirrhosis Ascites presence: without ascites Qualified Code(s): K70.30 - Alcoholic cirrhosis of liver without ascites Is this a current diagnosis for this admission?: Yes (7) Alcohol abuse Is this a current diagnosis for this admission?: Yes (8) Chronic alcoholic pancreatitis Is this a current diagnosis for this admission?: Yes (9) Hypercalcemia Is this a current diagnosis for this admission?: Yes Plan: Resolved with hydration, secondary to? Neoplasm of the pancreas
[2018-04-18 17:27] LABS: ANION GAP 6 (5-19); BLOOD UREA NITROGEN 15 mg/dL (7-20); CALCIUM 9.8 mg/dL (8.4-10.2); CARBON DIOXIDE 24 mmol/L (22-30); CHLORIDE 108 mmol/L (98-107); GLUCOSE 267 mg/dL (75-110); POTASSIUM 4.4 mmol/L (3.6-5.0)
[2018-04-18] MEDS: INSULIN LISPRO 100 UNIT/ML 3 ML VIAL SUBCUT PRN ×2 (17:41→21:08)
[2018-04-18] MEDS: TRAZODONE HCL 50 MG TABLET PO SCH (21:13)
[2018-04-18 21:39] LABS: ANION GAP 5 (5-19); BLOOD UREA NITROGEN 17 mg/dL (7-20); CALCIUM 9.6 mg/dL (8.4-10.2); CARBON DIOXIDE 23 mmol/L (22-30); CHLORIDE 110 mmol/L (98-107); GLUCOSE 327 mg/dL (75-110)
[2018-04-19 03:45] LABS: BLOOD UREA NITROGEN 14 mg/dL (7-20); CALCIUM 9.3 mg/dL (8.4-10.2); GLUCOSE 169 mg/dL (75-110); POTASSIUM 3.9 mmol/L (3.6-5.0)
[2018-04-19 03:52] LABS: CARBON DIOXIDE 21 mmol/L (22-30); CHLORIDE 117 mmol/L (98-107)
[2018-04-19 03:56] LABS: ANION GAP 4 (5-19)
[2018-04-19 07:40] LABS: BLOOD UREA NITROGEN 13 mg/dL (7-20); CALCIUM 9.1 mg/dL (8.4-10.2); GLUCOSE 198 mg/dL (75-110); POTASSIUM 3.9 mmol/L (3.6-5.0)
[2018-04-19 07:45] LABS: CARBON DIOXIDE 18 mmol/L (22-30); CHLORIDE 118 mmol/L (98-107); SODIUM 138.8 mmol/L (137-145)
[2018-04-19 07:49] LABS: ANION GAP 3 (5-19)
[2018-04-19] MEDS: INSULIN LISPRO 100 UNIT/ML 3 ML VIAL SUBCUT PRN ×4 (08:05→22:16)
[2018-04-19] MEDS: INSULIN GLARGINE,HUM.REC.ANLOG 300 UNIT/3 ML INSULN.PEN SUBCUT SCH (09:38)
[2018-04-19 11:48] LABS: ANION GAP 8 (5-19); BLOOD UREA NITROGEN 12 mg/dL (7-20); CALCIUM 9.2 mg/dL (8.4-10.2); CARBON DIOXIDE 20 mmol/L (22-30); CHLORIDE 110 mmol/L (98-107); GLUCOSE 292 mg/dL (75-110); POTASSIUM 4.4 mmol/L (3.6-5.0); SODIUM 138.4 mmol/L (137-145)
--- NOTE | 2018-04-19 15:04 | PDOC PROGRESS REPORT ---
Subjective Progress Note for:: 04/19/18 Subjective:: Patient was seen by the bedside, she has no new complaints Reason For Visit: HYPERGLYCEMIA,HYPONATREMIA,HYPOTENSION Physical Exam Vital Signs: Temp Pulse Resp BP Pulse Ox 97.5 F 76 16 117/75 100 04/19/18 11:54 04/19/18 11:54 04/19/18 11:54 04/19/18 11:54 04/19/18 11:54 Intake & Output 04/18/18 04/19/18 04/20/18 06:59 06:59 06:59 Intake Total 3422 3943 Balance 3422 3943 Weight 62.9 kg 67.5 kg General appearance: PRESENT: no acute distress Eye exam: PRESENT: PERRLA Respiratory exam: PRESENT: clear to auscultation neelam Cardiovascular exam: PRESENT: +S2 Neurological exam: PRESENT: alert Results Laboratory Results: 04/16/18 10:20 04/19/18 11:20 04/18/18 04/18/18 04/19/18 16:55 21:15 01:15 Sodium 138.0 138.0 Cancelled Potassium 4.4 4.0 Cancelled Chloride 108 H 110 H Cancelled Carbon Dioxide 24 23 Cancelled Anion Gap 6 5 Cancelled BUN 15 17 Cancelled Creatinine 0.80 0.68 Cancelled Est GFR ( Amer) > 60 > 60 Cancelled Est GFR (Non-Af Amer) > 60 > 60 Cancelled Glucose 267 H 327 H Cancelled Calcium 9.8 9.6 Cancelled 04/19/18 04/19/18 04/19/18 03:15 07:01 11:20 Sodium 142.0 138.8 138.4 Potassium 3.9 3.9 4.4 Chloride 117 H 118 H 110 H Carbon Dioxide 21 L 18 L 20 L Anion Gap 4 L 3 L 8 BUN 14 13 12 Creatinine 0.62 0.62 0.60 Est GFR ( Amer) > 60 > 60 > 60 Est GFR (Non-Af Amer) > 60 > 60 > 60 Glucose 169 H 198 H 292 H Calcium 9.3 9.1 9.2 04/16/18 10:20 CK-MB (CK-2) 3.51 Troponin I 0.042 Impressions: Abdomen/Pelvis CT 04/16/18 00:00 IMPRESSION: Fatty infiltrate of change to the liver. Slightly nodular contour to the liver for tissue early cirrhotic change is not excluded. Atrophic appearance to the body and tail of the pancreas. Point defined hypodensity in the region of the pancreatic head. This could reflect complex pseudocyst or cystadenoma. An inflammatory process of the pancreas could also be considered. Correlate with pancreatic enzyme levels. Malignancy not excluded. There is biliary ductal dilatation. Multiple calcifications of the pancreas consistent with chronic pancreatitis. Given these findings, consider dedicated MRCP or ERCP for follow-up. In addition, there is distended, fluid-filled appearance to the endocervical canal. Gynecologic follow-up is recommended. Small volume of ascites. TECHNICAL DOCUMENTATION: Quality ID # 436: Final reports with documentation of one or more dose reduction techniques (e.g., Automated exposure control, adjustment of the mA and/or kV according to patient size, use of iterative reconstruction technique) copyright 2011 [employer]- All Rights Reserved Chest X-Ray 04/16/18 09:34 IMPRESSION: NO ACUTE RADIOGRAPHIC FINDING IN THE CHEST. 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, she would need insulin replacement therapy, start Lantus (2) Hyperosmolar non-ketotic state in patient with type 2 diabetes mellitus Is this a current diagnosis for this admission?: Yes (3) Newly diagnosed diabetes Is this a current diagnosis for this admission?: Yes (4) Pancreatic mass Is this a current diagnosis for this admission?: Yes Plan: She would need ERCP with tissue diagnosis (5) Hyponatremia Is this a current diagnosis for this admission?: Yes (6) Liver cirrhosis Qualifiers: Hepatic cirrhosis type: alcoholic cirrhosis Ascites presence: without ascites Qualified Code(s): K70.30 - Alcoholic cirrhosis of liver without ascites Is this a current diagnosis for this admission?: Yes (7) Alcohol abuse Is this a current diagnosis for this admission?: Yes (8) Chronic alcoholic pancreatitis Is this a current diagnosis for this admission?: Yes (9) Hypercalcemia Is this a current diagnosis for this admission?: Yes Plan: Resolved with hydration, secondary to? Neoplasm of the pancreas
[2018-04-19 16:02] LABS: ANION GAP 8 (5-19); BLOOD UREA NITROGEN 12 mg/dL (7-20); CALCIUM 9.7 mg/dL (8.4-10.2); CARBON DIOXIDE 19 mmol/L (22-30); CHLORIDE 111 mmol/L (98-107); GLUCOSE 180 mg/dL (75-110); POTASSIUM 3.6 mmol/L (3.6-5.0); SODIUM 137.6 mmol/L (137-145)
[2018-04-19 19:32] LABS: ANION GAP 6 (5-19); BLOOD UREA NITROGEN 14 mg/dL (7-20); CARBON DIOXIDE 23 mmol/L (22-30); CHLORIDE 109 mmol/L (98-107); GLUCOSE 325 mg/dL (75-110); POTASSIUM 3.8 mmol/L (3.6-5.0); SODIUM 137.9 mmol/L (137-145)
[2018-04-19] MEDS: TRAZODONE HCL 50 MG TABLET PO SCH (22:16)
[2018-04-19 23:49] LABS: ANION GAP 6 (5-19); BLOOD UREA NITROGEN 15 mg/dL (7-20); CALCIUM 9.3 mg/dL (8.4-10.2); CARBON DIOXIDE 20 mmol/L (22-30); CHLORIDE 110 mmol/L (98-107); GLUCOSE 269 mg/dL (75-110); POTASSIUM 3.6 mmol/L (3.6-5.0); SODIUM 136.3 mmol/L (137-145)
[2018-04-20 04:00] LABS: ANION GAP 5 (5-19); BLOOD UREA NITROGEN 14 mg/dL (7-20); CALCIUM 9.2 mg/dL (8.4-10.2); CARBON DIOXIDE 18 mmol/L (22-30); CHLORIDE 115 mmol/L (98-107); GLUCOSE 184 mg/dL (75-110); POTASSIUM 3.6 mmol/L (3.6-5.0); SODIUM 138.2 mmol/L (137-145)
[2018-04-20 08:14] LABS: ANION GAP 5 (5-19); BLOOD UREA NITROGEN 13 mg/dL (7-20); CALCIUM 9.4 mg/dL (8.4-10.2); CARBON DIOXIDE 21 mmol/L (22-30); CHLORIDE 114 mmol/L (98-107); GLUCOSE 200 mg/dL (75-110); SODIUM 140.2 mmol/L (137-145)
[2018-04-20] MEDS: INSULIN LISPRO 100 UNIT/ML 3 ML VIAL SUBCUT PRN ×3 (09:59→18:04)
[2018-04-20] MEDS: INSULIN GLARGINE,HUM.REC.ANLOG 300 UNIT/3 ML INSULN.PEN SUBCUT SCH (10:00)
[2018-04-20] MEDS: NORMAL SALINE 1000 ML 1,000 ML IV PRN ×2 (11:20→18:19)
[2018-04-20 11:57] LABS: ANION GAP 8 (5-19); BLOOD UREA NITROGEN 12 mg/dL (7-20); CALCIUM 9.2 mg/dL (8.4-10.2); CARBON DIOXIDE 20 mmol/L (22-30); CHLORIDE 110 mmol/L (98-107); GLUCOSE 365 mg/dL (75-110); POTASSIUM 3.9 mmol/L (3.6-5.0); SODIUM 138.3 mmol/L (137-145)
[2018-04-20 15:57] LABS: ANION GAP 7 (5-19); BLOOD UREA NITROGEN 12 mg/dL (7-20); CALCIUM 9.1 mg/dL (8.4-10.2); CARBON DIOXIDE 23 mmol/L (22-30); CHLORIDE 109 mmol/L (98-107); GLUCOSE 301 mg/dL (75-110); POTASSIUM 3.4 mmol/L (3.6-5.0); SODIUM 139.2 mmol/L (137-145)
[2018-04-20 19:39] LABS: ANION GAP 6 (5-19); BLOOD UREA NITROGEN 15 mg/dL (7-20); CARBON DIOXIDE 22 mmol/L (22-30); CHLORIDE 111 mmol/L (98-107); GLUCOSE 227 mg/dL (75-110); POTASSIUM 3.5 mmol/L (3.6-5.0); SODIUM 139.2 mmol/L (137-145)
[2018-04-20] MEDS ORDERED: POTASSIUM CHLORIDE 10 MEQ CAPSULE.ER PO ONE ×2 (20:00→21:02)
--- NOTE | 2018-04-20 20:50 | PDOC PROGRESS REPORT ---
Subjective Progress Note for:: 04/20/18 Subjective:: She was seen by the bedside, I spoke to GI, Dr. Sánchez about her condition he stated that the patient would need endoscopy ultrasonic evaluation of the lesion of the pancreas but he is of the opinion that this could be done outpatient Reason For Visit: HYPERGLYCEMIA,HYPONATREMIA,HYPOTENSION Physical Exam Vital Signs: Temp Pulse Resp BP Pulse Ox 98.1 F 79 18 113/64 100 04/20/18 20:02 04/20/18 20:02 04/20/18 20:02 04/20/18 20:02 04/20/18 20:02 Intake & Output 04/19/18 04/20/18 04/21/18 06:59 06:59 06:59 Intake Total 3943 1544 1000 Balance 3943 1544 1000 Weight 67.5 kg 69.1 kg Results Laboratory Results: 04/16/18 10:20 04/20/18 18:54 04/19/18 04/20/18 04/20/18 23:18 03:26 07:33 Sodium 136.3 L 138.2 140.2 Potassium 3.6 3.6 4.0 Chloride 110 H 115 H 114 H Carbon Dioxide 20 L 18 L 21 L Anion Gap 6 5 5 BUN 15 14 13 Creatinine 0.78 0.68 0.72 Est GFR ( Amer) > 60 > 60 > 60 Est GFR (Non-Af Amer) > 60 > 60 > 60 Glucose 269 H 184 H 200 H Calcium 9.3 9.2 9.4 04/20/18 04/20/18 04/20/18 11:18 15:15 18:54 Sodium 138.3 139.2 139.2 Potassium 3.9 3.4 L 3.5 L Chloride 110 H 109 H 111 H Carbon Dioxide 20 L 23 22 Anion Gap 8 7 6 BUN 12 12 15 Creatinine 0.69 0.77 0.84 Est GFR ( Amer) > 60 > 60 > 60 Est GFR (Non-Af Amer) > 60 > 60 > 60 Glucose 365 H 301 H 227 H Calcium 9.2 9.1 9.0 04/16/18 10:20 CK-MB (CK-2) 3.51 Troponin I 0.042 Impressions: Abdomen/Pelvis CT 04/16/18 00:00 IMPRESSION: Fatty infiltrate of change to the liver. Slightly nodular contour to the liver for tissue early cirrhotic change is not excluded. Atrophic appearance to the body and tail of the pancreas. Point defined hypodensity in the region of the pancreatic head. This could reflect complex pseudocyst or cystadenoma. An inflammatory process of the pancreas could also be considered. Correlate with pancreatic enzyme levels. Malignancy not excluded. There is biliary ductal dilatation. Multiple calcifications of the pancreas consistent with chronic pancreatitis. Given these findings, consider dedicated MRCP or ERCP for follow-up. In addition, there is distended, fluid-filled appearance to the endocervical canal. Gynecologic follow-up is recommended. Small volume of ascites. TECHNICAL DOCUMENTATION: Quality ID # 436: Final reports with documentation of one or more dose reduction techniques (e.g., Automated exposure control, adjustment of the mA and/or kV according to patient size, use of iterative reconstruction technique) copyright 2011 [email or web address]- All Rights Reserved Chest X-Ray 04/16/18 09:34 IMPRESSION: NO ACUTE RADIOGRAPHIC FINDING IN THE CHEST. 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, she would need insulin replacement therapy, continue treatment (2) Newly diagnosed diabetes Is this a current diagnosis for this admission?: Yes (3) Pancreatic mass Is this a current diagnosis for this admission?: Yes (4) Hyponatremia Is this a current diagnosis for this admission?: Yes (5) Liver cirrhosis Qualifiers: Hepatic cirrhosis type: alcoholic cirrhosis Ascites presence: without ascites Qualified Code(s): K70.30 - Alcoholic cirrhosis of liver without ascites Is this a current diagnosis for this admission?: Yes (6) Alcohol abuse Is this a current diagnosis for this admission?: Yes (7) Chronic alcoholic pancreatitis Is this a current diagnosis for this admission?: Yes (8) Hypercalcemia Is this a current diagnosis for this admission?: Yes Plan: Resolved with hydration, secondary to? Neoplasm of the pancreas
[2018-04-20] MEDS: TRAZODONE HCL 50 MG TABLET PO SCH (21:26)
[2018-04-20 23:38] LABS: ANION GAP 5 (5-19); BLOOD UREA NITROGEN 15 mg/dL (7-20); CALCIUM 8.8 mg/dL (8.4-10.2); CARBON DIOXIDE 20 mmol/L (22-30); CHLORIDE 113 mmol/L (98-107); GLUCOSE 122 mg/dL (75-110); POTASSIUM 3.5 mmol/L (3.6-5.0); SODIUM 138.2 mmol/L (137-145)
[2018-04-21] MEDS ORDERED: POTASSIUM CHLORIDE 10 MEQ CAPSULE.ER PO ONE ×3 (02:11→06:51)
[2018-04-21 03:48] LABS: ANION GAP 6 (5-19); BLOOD UREA NITROGEN 14 mg/dL (7-20); CALCIUM 8.5 mg/dL (8.4-10.2); CARBON DIOXIDE 18 mmol/L (22-30); CHLORIDE 118 mmol/L (98-107); GLUCOSE 173 mg/dL (75-110); POTASSIUM 4.1 mmol/L (3.6-5.0); SODIUM 141.7 mmol/L (137-145)
[2018-04-21] MEDS: NORMAL SALINE 1000 ML 1,000 ML IV PRN ×3 (07:33→22:23)
[2018-04-21] MEDS: INSULIN LISPRO 100 UNIT/ML 3 ML VIAL SUBCUT PRN ×3 (07:39→18:07)
[2018-04-21 08:00] LABS: BLOOD UREA NITROGEN 12 mg/dL (7-20); CALCIUM 8.5 mg/dL (8.4-10.2); GLUCOSE 165 mg/dL (75-110); POTASSIUM 4.2 mmol/L (3.6-5.0)
[2018-04-21 08:06] LABS: CARBON DIOXIDE 20 mmol/L (22-30); CHLORIDE 118 mmol/L (98-107); SODIUM 140.7 mmol/L (137-145)
[2018-04-21 08:07] LABS: ANION GAP 3 (5-19)
[2018-04-21] MEDS: INSULIN GLARGINE,HUM.REC.ANLOG 300 UNIT/3 ML INSULN.PEN SUBCUT SCH (10:26)
[2018-04-21 11:37] LABS: ANION GAP 5 (5-19); BLOOD UREA NITROGEN 11 mg/dL (7-20); CALCIUM 8.8 mg/dL (8.4-10.2); CARBON DIOXIDE 22 mmol/L (22-30); CHLORIDE 113 mmol/L (98-107); GLUCOSE 229 mg/dL (75-110); POTASSIUM 4.2 mmol/L (3.6-5.0); SODIUM 140.1 mmol/L (137-145)
[2018-04-21 15:54] LABS: ANION GAP 7 (5-19); BLOOD UREA NITROGEN 11 mg/dL (7-20); CALCIUM 8.5 mg/dL (8.4-10.2); CARBON DIOXIDE 22 mmol/L (22-30); CHLORIDE 110 mmol/L (98-107); GLUCOSE 297 mg/dL (75-110); POTASSIUM 3.9 mmol/L (3.6-5.0); SODIUM 138.8 mmol/L (137-145)
--- NOTE | 2018-04-21 18:53 | PDOC CONSULTATION ---
Consultation Consult Date: 04/21/18 History of Present Illness Admission Date/PCP: 04/16/18 12:05 АЛЕКСАНДР REDDING MD History of Present Illness: VELMA MACDONALD is a 63 year old female patient was admitted on 04/16/2018 with abdominal pain, constipation and a blood sugar of over 600. She also had severe hyponatremia. Consultation was requested for abnormal CAT scan suggesting cirrhosis and the pancreatic lesion. She had multiple pancreatic calcification with a poorly defined lesion measuring 1.8 x 2.3 cm at the pancreatic head. There was some biliary duct dilation though her bilirubin was normal on admission. Her lipase was also 464 on admission Patient denies abdominal pain, nausea, or vomiting. She was abusing alcohol and not done this for years until the last month. She has also not been compliant with a diabetic medications. She has lost a lot of weight. Past Medical History Cardiac Medical History: Reports: Hypertension Endocrine Medical History: Reports: Diabetes Mellitus Type 2 Denies: Diabetes Mellitus Type 1 Psychiatric Medical History: Reports: Depression Past Surgical History Past Surgical History: Reports: Cholecystectomy Social History Smoking Status: Current Every Day Smoker Cigarettes Packs Per Day: 0.2 Cigars Per Day: 0 Pipes Per Day: 0 Number of Years Smokin Last Time Smoked: 04/16/2018 Frequency of Alcohol Use: Heavy Hx Recreational Drug Use: No Drugs: None Hx Prescription Drug Abuse: No - Advance Directive Resuscitation Status: Full Code Family History Family History: Reviewed & Not Pertinent Parental Family History Reviewed: No Children Family History Reviewed: NA Sibling(s) Family History Reviewed.: NA Medication/Allergy Home Medications: Lisinopril/Hydrochlorothiazide [Lisinopril-Hctz 20-25 mg Tab] 1 tab PO DAILY 04/16/18 Trazodone HCl [Desyrel 50 mg Tablet] 50 mg PO QHS 04/16/18 Allergies/Adverse Reactions: No Known Allergies Allergy (Verified 04/16/18 08:49) Physical Exam Vital Signs: Temp Pulse Resp BP Pulse Ox 98.1 F 82 17 115/72 100 04/21/18 15:40 04/21/18 15:40 04/21/18 15:40 04/21/18 15:40 04/21/18 15:40 Intake & Output 04/20/18 04/21/18 04/22/18 06:59 06:59 06:59 Intake Total 1544 2660 1860 Balance 1544 2660 1860 Weight 69.1 kg 68.7 kg Exam: General: Patient is alert and looks well. HEENT: There is no pallor or jaundice. PERRLA. Oropharynx normal Respiratory: No chest deformity. No respiratory distress. Chest wall palpitation was unremarkable. Breath sounds were normal Cardiovascular: Heart sounds 1 and 2 normal with no murmurs. Abdominal: Not distended. Soft and nontender. Liver and spleen not palpable. No ascites demonstrated. Bowel sounds active. Rectal examination was deferred. Extremities: No edema Neurological: Alert and oriented x4. Grossly nonfocal. Normal speech Skin: No significant rash Psychological: Normal affect Results Laboratory Results: 04/16/18 10:20 04/20/18 04/20/18 04/21/18 18:54 23:17 03:23 Sodium 139.2 138.2 141.7 Potassium 3.5 L 3.5 L 4.1 Chloride 111 H 113 H 118 H Carbon Dioxide 22 20 L 18 L Anion Gap 6 5 6 BUN 15 15 14 Creatinine 0.84 0.63 0.72 Est GFR ( Amer) > 60 > 60 > 60 Est GFR (Non-Af Amer) > 60 > 60 > 60 Glucose 227 H 122 H 173 H Calcium 9.0 8.8 8.5 04/21/18 04/21/18 04/21/18 07:22 10:59 15:06 Sodium 140.7 140.1 138.8 Potassium 4.2 4.2 3.9 Chloride 118 H 113 H 110 H Carbon Dioxide 20 L 22 22 Anion Gap 3 L 5 7 BUN 12 11 11 Creatinine 0.66 0.67 0.81 Est GFR ( Amer) > 60 > 60 > 60 Est GFR (Non-Af Amer) > 60 > 60 > 60 Glucose 165 H 229 H 297 H Calcium 8.5 8.8 8.5 04/16/18 11:14 Blood Blood Culture - Final NO GROWTH IN 5 DAYS 04/16/18 10:20 Blood Blood Culture - Final NO GROWTH IN 5 DAYS 04/16/18 10:20 CK-MB (CK-2) 3.51 Troponin I 0.042 Impressions: Abdomen/Pelvis CT 04/16/18 00:00 IMPRESSION: Fatty infiltrate of change to the liver. Slightly nodular contour to the liver for tissue early cirrhotic change is not excluded. Atrophic appearance to the body and tail of the pancreas. Point defined hypodensity in the region of the pancreatic head. This could reflect complex pseudocyst or cystadenoma. An inflammatory process of the pancreas could also be considered. Correlate with pancreatic enzyme levels. Malignancy not excluded. There is biliary ductal dilatation. Multiple calcifications of the pancreas consistent with chronic pancreatitis. Given these findings, consider dedicated MRCP or ERCP for follow-up. In addition, there is distended, fluid-filled appearance to the endocervical canal. Gynecologic follow-up is recommended. Small volume of ascites. TECHNICAL DOCUMENTATION: Quality ID # [id number]: Final reports with documentation of one or more dose reduction techniques (e.g., Automated exposure control, adjustment of the mA and/or kV according to patient size, use of iterative reconstruction technique) copyright 2011 [employer]- All Rights Reserved Chest X-Ray 04/16/18 09:34 IMPRESSION: NO ACUTE RADIOGRAPHIC FINDING IN THE CHEST. Assessment & Plan - Diagnosis (1) Pancreatic mass Is this a current diagnosis for this admission?: Yes Plan: She has a lesion in her pancreatic head that requires further evaluation by endoscopic ultrasound and possible biopsy. This would be arranged in [place] upon discharge. I sent her for for CA 199 (2) Chronic alcoholic pancreatitis Is this a current diagnosis for this admission?: Yes Plan: She has evidence of chronic calcific pancreatitis from her alcohol use. Abdomen pain does not seem to be a major concern for her. (3) Alcohol abuse Is this a current diagnosis for this admission?: Yes (4) Liver cirrhosis Qualifiers: Hepatic cirrhosis type: alcoholic cirrhosis Ascites presence: without ascites Qualified Code(s): K70.30 - Alcoholic cirrhosis of liver without ascites Is this a current diagnosis for this admission?: Yes Plan: She has evidence of cirrhosis on the CAT scan and her LFTs were slightly abnormal. She has abused alcohol for many years. She will be sent for hepatitis and autoimmune serology
[2018-04-21 19:05] LABS: ANION GAP 5 (5-19); BLOOD UREA NITROGEN 12 mg/dL (7-20); CALCIUM 8.8 mg/dL (8.4-10.2); CARBON DIOXIDE 24 mmol/L (22-30); CHLORIDE 110 mmol/L (98-107); GLUCOSE 215 mg/dL (75-110); POTASSIUM 3.7 mmol/L (3.6-5.0); SODIUM 139.2 mmol/L (137-145)
--- NOTE | 2018-04-21 21:37 | PDOC PROGRESS REPORT ---
Subjective Progress Note for:: 04/21/18 Subjective:: Patient seen by the bedside, she was seen by the GI physician today Reason For Visit: HYPERGLYCEMIA,HYPONATREMIA,HYPOTENSION Physical Exam Vital Signs: Temp Pulse Resp BP Pulse Ox 98.1 F 77 16 126/63 H 100 04/21/18 19:57 04/21/18 19:57 04/21/18 19:57 04/21/18 19:57 04/21/18 15:40 Intake & Output 04/20/18 04/21/18 04/22/18 06:59 06:59 06:59 Intake Total 1544 2660 1860 Balance 1544 2660 1860 Weight 69.1 kg 68.7 kg General appearance: PRESENT: no acute distress Eye exam: PRESENT: PERRLA Respiratory exam: PRESENT: clear to auscultation neelam Cardiovascular exam: PRESENT: +S1, +S2 Neurological exam: PRESENT: alert Results Laboratory Results: 04/16/18 10:20 04/21/18 18:40 04/20/18 04/21/18 04/21/18 23:17 03:23 07:22 Sodium 138.2 141.7 140.7 Potassium 3.5 L 4.1 4.2 Chloride 113 H 118 H 118 H Carbon Dioxide 20 L 18 L 20 L Anion Gap 5 6 3 L BUN 15 14 12 Creatinine 0.63 0.72 0.66 Est GFR ( Amer) > 60 > 60 > 60 Est GFR (Non-Af Amer) > 60 > 60 > 60 Glucose 122 H 173 H 165 H Calcium 8.8 8.5 8.5 04/21/18 04/21/18 04/21/18 10:59 15:06 18:40 Sodium 140.1 138.8 139.2 Potassium 4.2 3.9 3.7 Chloride 113 H 110 H 110 H Carbon Dioxide 22 22 24 Anion Gap 5 7 5 BUN 11 11 12 Creatinine 0.67 0.81 0.87 Est GFR ( Amer) > 60 > 60 > 60 Est GFR (Non-Af Amer) > 60 > 60 > 60 Glucose 229 H 297 H 215 H Calcium 8.8 8.5 8.8 04/16/18 11:14 Blood Blood Culture - Final NO GROWTH IN 5 DAYS 04/16/18 10:20 Blood Blood Culture - Final NO GROWTH IN 5 DAYS 04/16/18 10:20 CK-MB (CK-2) 3.51 Troponin I 0.042 Impressions: Abdomen/Pelvis CT 04/16/18 00:00 IMPRESSION: Fatty infiltrate of change to the liver. Slightly nodular contour to the liver for tissue early cirrhotic change is not excluded. Atrophic appearance to the body and tail of the pancreas. Point defined hypodensity in the region of the pancreatic head. This could reflect complex pseudocyst or cystadenoma. An inflammatory process of the pancreas could also be considered. Correlate with pancreatic enzyme levels. Malignancy not excluded. There is biliary ductal dilatation. Multiple calcifications of the pancreas consistent with chronic pancreatitis. Given these findings, consider dedicated MRCP or ERCP for follow-up. In addition, there is distended, fluid-filled appearance to the endocervical canal. Gynecologic follow-up is recommended. Small volume of ascites. TECHNICAL DOCUMENTATION: Quality ID # 436: Final reports with documentation of one or more dose reduction techniques (e.g., Automated exposure control, adjustment of the mA and/or kV according to patient size, use of iterative reconstruction technique) copyright 2011 [employer]- All Rights Reserved Chest X-Ray 04/16/18 09:34 IMPRESSION: NO ACUTE RADIOGRAPHIC FINDING IN THE CHEST. 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, she would need insulin replacement therapy, continue treatment (2) Newly diagnosed diabetes Is this a current diagnosis for this admission?: Yes Plan: Continue insulin drip (3) Pancreatic mass Is this a current diagnosis for this admission?: Yes Plan: She would need ERCP with tissue diagnosis (4) Hyponatremia Is this a current diagnosis for this admission?: Yes Plan: This is resolved (5) Liver cirrhosis Qualifiers: Hepatic cirrhosis type: alcoholic cirrhosis Ascites presence: without ascites Qualified Code(s): K70.30 - Alcoholic cirrhosis of liver without ascites Is this a current diagnosis for this admission?: Yes (6) Alcohol abuse Is this a current diagnosis for this admission?: Yes (7) Chronic alcoholic pancreatitis Is this a current diagnosis for this admission?: Yes (8) Hypercalcemia Is this a current diagnosis for this admission?: Yes Plan: Resolved with hydration, secondary to? Neoplasm of the pancreas
[2018-04-21] MEDS: TRAZODONE HCL 50 MG TABLET PO SCH (22:21)
[2018-04-21 23:37] LABS: BLOOD UREA NITROGEN 12 mg/dL (7-20); CALCIUM 8.6 mg/dL (8.4-10.2); GLUCOSE 104 mg/dL (75-110); POTASSIUM 4.4 mmol/L (3.6-5.0)
[2018-04-21 23:49] LABS: CARBON DIOXIDE 23 mmol/L (22-30); CHLORIDE 113 mmol/L (98-107); SODIUM 138.5 mmol/L (137-145)
[2018-04-21 23:52] LABS: ANION GAP 3 (5-19)
[2018-04-22 03:44] LABS: BLOOD UREA NITROGEN 12 mg/dL (7-20); CALCIUM 8.6 mg/dL (8.4-10.2); GLUCOSE 125 mg/dL (75-110); POTASSIUM 3.7 mmol/L (3.6-5.0)
[2018-04-22 03:50] LABS: CARBON DIOXIDE 21 mmol/L (22-30); CHLORIDE 117 mmol/L (98-107); SODIUM 141.8 mmol/L (137-145)
[2018-04-22 03:51] LABS: ANION GAP 4 (5-19)
[2018-04-22] MEDS: NORMAL SALINE 1000 ML 1,000 ML IV PRN ×2 (07:40→15:52)
[2018-04-22 08:15] LABS: BLOOD UREA NITROGEN 11 mg/dL (7-20); CALCIUM 8.9 mg/dL (8.4-10.2); GLUCOSE 126 mg/dL (75-110); POTASSIUM 3.9 mmol/L (3.6-5.0)
[2018-04-22 08:21] LABS: CARBON DIOXIDE 22 mmol/L (22-30); CHLORIDE 116 mmol/L (98-107); SODIUM 142.2 mmol/L (137-145)
[2018-04-22 08:23] LABS: ANION GAP 4 (5-19)
[2018-04-22] MEDS: INSULIN GLARGINE,HUM.REC.ANLOG 300 UNIT/3 ML INSULN.PEN SUBCUT SCH (10:33)
[2018-04-22] MEDS: INSULIN LISPRO 100 UNIT/ML 3 ML VIAL SUBCUT PRN ×3 (11:49→21:42)
[2018-04-22 12:54] LABS: ANION GAP 6 (5-19); BLOOD UREA NITROGEN 10 mg/dL (7-20); CALCIUM 8.5 mg/dL (8.4-10.2); CARBON DIOXIDE 20 mmol/L (22-30); CHLORIDE 112 mmol/L (98-107); GLUCOSE 269 mg/dL (75-110); POTASSIUM 4.1 mmol/L (3.6-5.0); SODIUM 137.8 mmol/L (137-145)
[2018-04-22 16:29] LABS: ANION GAP 5 (5-19); BLOOD UREA NITROGEN 11 mg/dL (7-20); CALCIUM 8.6 mg/dL (8.4-10.2); CARBON DIOXIDE 23 mmol/L (22-30); CHLORIDE 109 mmol/L (98-107); GLUCOSE 219 mg/dL (75-110)
--- NOTE | 2018-04-22 19:25 | PDOC DISCHARGE SUMMARY ---
General - Admit/Disc Date/PCP Admission Date/Primary Care Provider: 04/16/18 12:05 АЛЕКСАНДР REDDING MD Discharge Date: 04/22/18 - Discharge Diagnosis (1) Secondary diabetes Is this a current diagnosis for this admission?: Yes (2) Newly diagnosed diabetes Is this a current diagnosis for this admission?: Yes (3) Pancreatic mass Is this a current diagnosis for this admission?: Yes (4) Hyponatremia Is this a current diagnosis for this admission?: Yes (5) Liver cirrhosis Is this a current diagnosis for this admission?: Yes (6) Alcohol abuse Is this a current diagnosis for this admission?: Yes (7) Chronic alcoholic pancreatitis Is this a current diagnosis for this admission?: Yes (8) Hypercalcemia Is this a current diagnosis for this admission?: Yes (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 Is this a current diagnosis for this admission?: Yes - Additional Information Resuscitation Status: Full Code Prescriptions: Insulin NPH Hum/Reg Insulin Hm [Humulin 70/30 Kwikpen] 15 unit SQ BID #9 insuln.pen Home Medications: Trazodone HCl [Desyrel 50 mg Tablet] 50 mg PO QHS 04/16/18 Insulin NPH Hum/Reg Insulin Hm [Humulin 70/30 Kwikpen] 15 unit SQ BID #9 insuln.pen 04/22/18 Nystatin [Mycostatin Cream 15 gm] 1 applic TP BIDP PRN tube 04/22/18 History of Present Illness History of Present Illness: VELMA MACDONALD is a 63 year old female, she is very noncompliant the last office visit is over a year ago, she came to the emergency room for evaluation of abdominal pain, constipation she stated to the ED physician that she has been taking Metamucil without relief of her symptoms, she says she has liver pain but she pointed to the epigastrium, she has alcohol and tobacco use disorder, she stated that the last time she took alcohol was 45 days ago. In the emergency room she was evaluated she was found to have a low blood pressure and the blood sugar recorded was 636, she has no history of diabetes mellitus, also found was severe hyponatremia. When I saw her on the floor she looks extremely emaciated she has lost a lot of weight, the body mass index is 12, the weight loss could not be explained on the basis of diabetes by itself I suspected that she may have a malignancy of some sort especially with history of alcohol and tobacco abuse. I requested for CT abdomen and pelvis with IV contrast, it demonstrated fatty infiltration of the liver, slightly nodular contour suspicious for liver cirrhosis. The spleen and adrenal glands were unremarkable also found was multiple calcifications of the pancreas consistent with chronic pancreatitis the body and tail of the pancreas was atrophic there was a poorly defined hypodensity in the region of the pancreatic head that measured 1.8 x 2.3 cm findings was said to be suspicious for neoplasm there was extra hepatic biliary duct dilatation the kidneys are unremarkable there is a large amount of stool in the colon. The serum lipase was 464 not overly elevated. Hospital Course Hospital Course: She was admitted for the management of secondary diabetes mellitus due to alcohol related pancreatitis. She was also found to have liver cirrhosis, chronic pancreatitis on the basis of the CT scan of the pelvis and abdomen that was done. The CT scan demonstrated neoplasm at the Head of the pancreas, she needed to have endoscopic ultrasound evaluation of this lesion and a biopsy to confirm or rule out malignancy the procedure is not available in this hospital, she was seen by GI doctor Princess, she will be seen in the office and he will arrange for outpatient ultrasound endoscopy to be done on her. She was treated with IV fluid therapy she also had electrolyte derangement including hyponatremia, the serum calcium was elevated with a low PTH suggesting malignant hypercalcemia. The hypercalcemia was treated with hydration ,patient felt much better she has secondary diabetes mellitus she was treated with insulin. She did not manifest much abdominal pain despite chronic pancreatitis from alcoholism Physical Exam Vital Signs: Temp Pulse Resp BP Pulse Ox 98.3 F 73 16 138/80 H 100 04/22/18 16:53 04/22/18 16:53 04/22/18 16:53 04/22/18 16:53 04/22/18 16:53 Intake & Output 04/21/18 04/22/18 04/23/18 06:59 06:59 06:59 Intake Total 2660 4737 1000 Balance 2660 4737 1000 Weight 68.7 kg 68.8 kg General appearance: PRESENT: no acute distress Eye exam: PRESENT: PERRLA Respiratory exam: PRESENT: clear to auscultation neelam Cardiovascular exam: PRESENT: +S1, +S2 GI/Abdominal exam: PRESENT: soft Neurological exam: PRESENT: alert, CN II-XII grossly intact Results Laboratory Results: 04/16/18 10:20 04/22/18 15:47 04/21/18 04/22/18 04/22/18 23:11 03:24 07:25 Sodium 138.5 141.8 142.2 Potassium 4.4 3.7 3.9 Chloride 113 H 117 H 116 H Carbon Dioxide 23 21 L 22 Anion Gap 3 L 4 L 4 L BUN 12 12 11 Creatinine 0.75 0.67 0.65 Est GFR ( Amer) > 60 > 60 > 60 Est GFR (Non-Af Amer) > 60 > 60 > 60 Glucose 104 125 H 126 H Calcium 8.6 8.6 8.9 04/22/18 04/22/18 11:12 15:47 Sodium 137.8 137.0 Potassium 4.1 4.0 Chloride 112 H 109 H Carbon Dioxide 20 L 23 Anion Gap 6 5 BUN 10 11 Creatinine 0.62 0.73 Est GFR ( Amer) > 60 > 60 Est GFR (Non-Af Amer) > 60 > 60 Glucose 269 H 219 H Calcium 8.5 8.6 04/16/18 10:20 CK-MB (CK-2) 3.51 Troponin I 0.042 Impressions: Abdomen/Pelvis CT 04/16/18 00:00 IMPRESSION: Fatty infiltrate of change to the liver. Slightly nodular contour to the liver for tissue early cirrhotic change is not excluded. Atrophic appearance to the body and tail of the pancreas. Point defined hypodensity in the region of the pancreatic head. This could reflect complex pseudocyst or cystadenoma. An inflammatory process of the pancreas could also be considered. Correlate with pancreatic enzyme levels. Malignancy not excluded. There is biliary ductal dilatation. Multiple calcifications of the pancreas consistent with chronic pancreatitis. Given these findings, consider dedicated MRCP or ERCP for follow-up. In addition, there is distended, fluid-filled appearance to the endocervical canal. Gynecologic follow-up is recommended. Small volume of ascites. TECHNICAL DOCUMENTATION: Quality ID # 436: Final reports with documentation of one or more dose reduction techniques (e.g., Automated exposure control, adjustment of the mA and/or kV according to patient size, use of iterative reconstruction technique) copyright 2011 [employer]- All Rights Reserved Chest X-Ray 04/16/18 09:34 IMPRESSION: NO ACUTE RADIOGRAPHIC FINDING IN THE CHEST. Qualifiers - * PATIENT BEING DISCHARGED WITH ANY OF THE FOLLOWING DIAGNOSIS: No
[2018-04-22 20:12] LABS: BLOOD UREA NITROGEN 11 mg/dL (7-20); CALCIUM 8.5 mg/dL (8.4-10.2); GLUCOSE 173 mg/dL (75-110); POTASSIUM 3.6 mmol/L (3.6-5.0)
[2018-04-22 20:18] LABS: ANION GAP 3 (5-19); CARBON DIOXIDE 25 mmol/L (22-30); CHLORIDE 109 mmol/L (98-107); SODIUM 136.8 mmol/L (137-145)
[2018-04-22] MEDS: TRAZODONE HCL 50 MG TABLET PO SCH (21:42)
[2018-04-22 23:47] LABS: BLOOD UREA NITROGEN 11 mg/dL (7-20); CALCIUM 8.6 mg/dL (8.4-10.2); CARBON DIOXIDE 23 mmol/L (22-30); CHLORIDE 112 mmol/L (98-107); GLUCOSE 159 mg/dL (75-110); POTASSIUM 3.4 mmol/L (3.6-5.0); SODIUM 139.3 mmol/L (137-145)
[2018-04-23 00:13] LABS: ANION GAP 4 (5-19)
[2018-04-23 04:55] LABS: BLOOD UREA NITROGEN 11 mg/dL (7-20); CALCIUM 8.5 mg/dL (8.4-10.2); GLUCOSE 166 mg/dL (75-110); POTASSIUM 3.8 mmol/L (3.6-5.0)
[2018-04-23 05:00] LABS: CARBON DIOXIDE 21 mmol/L (22-30); CHLORIDE 115 mmol/L (98-107); SODIUM 140.5 mmol/L (137-145)
[2018-04-23 05:02] LABS: ANION GAP 5 (5-19)
[2018-04-23 09:07] VITALS: BP 117/75
[2018-04-23 09:20] LABS: ANION GAP 5 (5-19); BLOOD UREA NITROGEN 10 mg/dL (7-20); CALCIUM 8.6 mg/dL (8.4-10.2); CARBON DIOXIDE 21 mmol/L (22-30); CHLORIDE 114 mmol/L (98-107); GLUCOSE 155 mg/dL (75-110); POTASSIUM 3.9 mmol/L (3.6-5.0); SODIUM 140.1 mmol/L (137-145)
[2018-04-23] MEDS: INSULIN GLARGINE,HUM.REC.ANLOG 300 UNIT/3 ML INSULN.PEN SUBCUT SCH (10:23)
== END 2018-04-23 10:30 | disposition home or self-care (01) | DRG 638 ==
LOC: ER 08:43 → EH 12:05 → 4S 16:29
PROVIDERS: ADMIT Internal Medicine; ATTEND Internal Medicine
DX: E08.00 Diabetes mellitus due to underlying condition with hyperosmolarity without nonketotic hyperglycemic-hyperosmolar coma (NKHHC) (principal); E87.1 Hypo-osmolality and hyponatremia; R64 Cachexia; Z68.1 Body mass index [BMI] 19.9 or less, adult; K86.0 Alcohol-induced chronic pancreatitis; D37.8 Neoplasm of uncertain behavior of other specified digestive organs; K70.30 Alcoholic cirrhosis of liver without ascites; K86.9 Disease of pancreas, unspecified; F10.10 Alcohol abuse, uncomplicated; I95.9 Hypotension, unspecified; I10 Essential (primary) hypertension; F32.9 Major depressive disorder, single episode, unspecified; Z90.49 Acquired absence of other specified parts of digestive tract; F17.210 Nicotine dependence, cigarettes, uncomplicated; E83.52 Hypercalcemia; Z79.4 Long term (current) use of insulin; Z91.19 Patient's noncompliance with other medical treatment and regimen; Z23 Encounter for immunization
CPT/HCPCS: 36415; 71046; 74177; 80048; 80053; 80307; 81001; 82553; 82962; 83036; 83605; 83690; 83970; 84484; 85025; 85610; 85730; 86301; 87040; 87086; 90471; 90686; 93005; 93010; 96360; 99291; G0008; J1815; J3490; J7030

== ENCOUNTER → 2018-06-01 | Outpatient (CLI) | payer OTHER ==
[2018-06-01 10:47] LABS: ALANINE AMINOTRANSFERASE 36 U/L (9-52); ALBUMIN 4.3 g/dL (3.5-5.0); ALKALINE PHOSPHATASE 103 U/L (38-126); AMYLASE 174 U/L (30-110); ANION GAP 9 (5-19); ASPARTATE AMINO TRANSFERASE 51 U/L (14-36); BILIRUBIN,DIRECT 0.3 mg/dL (0.0-0.4); BILIRUBIN,TOTAL 0.5 mg/dL (0.2-1.3); BLOOD UREA NITROGEN 20 mg/dL (7-20); CALCIUM 10.1 mg/dL (8.4-10.2); CARBON DIOXIDE 27 mmol/L (22-30); CHLORIDE 105 mmol/L (98-107); GLUCOSE 98 mg/dL (75-110); POTASSIUM 4.5 mmol/L (3.6-5.0); SODIUM 140.7 mmol/L (137-145); TOTAL PROTEIN 8.1 g/dL (6.3-8.2)
== END ==
LOC: CCC 08:53
DX: E11.8 Type 2 diabetes mellitus with unspecified complications (principal); I10 Essential (primary) hypertension; R94.5 Abnormal results of liver function studies; Z81.1 Family history of alcohol abuse and dependence
CPT/HCPCS: 36415; 80053; 82150; 83036; 84443

== ENCOUNTER → 2018-06-04 | Outpatient (CLI) | payer OTHER ==
[2018-06-04 09:32] LABS: CHOLESTEROL 142.25 mg/dL (0-200); TRIGLYCERIDES 70 mg/dL (<150)
[2018-06-04 09:46] LABS: DIRECT LDL 79 mg/dL (<100)
== END ==
LOC: CCC 08:22
DX: E11.8 Type 2 diabetes mellitus with unspecified complications (principal); I10 Essential (primary) hypertension; R94.5 Abnormal results of liver function studies; Z81.1 Family history of alcohol abuse and dependence
CPT/HCPCS: 36415; 80061

== ENCOUNTER → 2018-10-15 | Outpatient (CLI) | payer OTHER ==
[2018-10-15 17:19] LABS: LIPASE 55.9 U/L (23-300)
== END ==
LOC: CCC 15:01
DX: E11.8 Type 2 diabetes mellitus with unspecified complications (principal); K85.90 Acute pancreatitis without necrosis or infection, unspecified; F10.10 Alcohol abuse, uncomplicated
CPT/HCPCS: 36415; 82150; 83036; 83690; 84443

== ENCOUNTER → 2018-10-22 | Outpatient (CLI) | payer OTHER | LOC: CCC 14:56 | DX: Z09 Encounter for follow-up examination after completed treatment for conditions other than malignant neoplasm (principal); Z86.19 Personal history of other infectious and parasitic diseases | CPT/HCPCS: 36415; 86592 ==

== ENCOUNTER → 2018-12-04 | Outpatient (CLI) | payer OTHER ==
--- NOTE | 2018-12-04 14:41 | RADIOLOGY REPORT (SQ) ---
EXAM DESCRIPTION: MRI LT LOWER JOINT WITHOUT COMPLETED DATE/TIME: 12/04/2018 11:32 am REASON FOR STUDY: (M25.562)PAIN IN LEFT KNEE M25.562 PAIN IN LEFT KNEE COMPARISON: None. TECHNIQUE: Leftknee images acquired and stored on PACS. Multiplanar images include fat sensitive se quences as T1, water sensitive sequences as FST2 or STIR, cartilage sensitive sequences as FSPD, and gradient echo sequences. LIMITATIONS: None. FINDINGS: JOINT AND BURSAE: Small effusion. BONE CORTEX AND MARROW: Diffuse signal abnormality with reactive changes throughout the distal femur and tibial plateau with numerous subcortical cystic changes. ACL: Complete chronic tear. PCL: Appears Intact. MCL: Intact. Displaced medially by a marginal osteophytes. LCL: Intact. No periligamentous edema or fluid. MEDIAL MENISCUS: Midbody and posterior horn degenerative tear. LATERAL MENISCUS: Midbody and anterior horn degenerative tear. MEDIAL COMPARTMENT: Complete cartilage loss with large marginal osteophytes and subcortical cystic ch anges. LATERAL COMPARTMENT: High-grade cartilage loss with large marginal osteophytes and subcortical cystic changes. PATELLA: Moderate arthrosis. . Medial and lateral retinacula intact. EXTENSOR MECHANISM: Intact. Quadriceps and patella tendons normal. SOFT TISSUES: Small Beltrán cyst. Normal flow void in popliteal artery and vein. OTHER: No other significant finding. IMPRESSION: Severe arthrosis. Chronic ACL tear. Medial and lateral meniscal tears. TECHNICAL DOCUMENTATION: JOB ID: [id number] [place]-72 2010 [employer]- All Rights Reserved Reading location - IP/workstation name: [employer]
== END ==
LOC: RAD 10:27
PROVIDERS: ATTEND Internal Medicine
DX: M25.562 Pain in left knee (principal); M17.12 Unilateral primary osteoarthritis, left knee; M23.8X2 Other internal derangements of left knee

== ENCOUNTER → 2019-01-05 | Outpatient (CLI) | payer OTHER ==
[2019-01-05 13:22] LABS: ABSOLUTE BASOPHILS # (AUTO) 0.1 10^3/uL (0.0-0.2); ABSOLUTE EOSINOPHILS # (AUTO) 0.3 10^3/uL (0.0-0.6); ABSOLUTE LYMPHOCYTES (AUTO) 2.2 10^3/uL (0.5-4.7); ABSOLUTE MONOCYTES (AUTO) 0.3 10^3/uL (0.1-1.4); ABSOLUTE NEUT (AUTO) 3.6 10^3/uL (1.7-8.2); EOSINOPHILS % (AUTO) 4.2 % (0-6); HEMATOCRIT 36.6 % (36.0-47.0); HEMOGLOBIN 12.4 g/dL (12.0-15.5); LYMPHOCYTES % (AUTO) 34.4 % (13-45); MEAN CORPUSCULAR HEMOGLOBIN 31.7 pg (27.0-33.4); MEAN CORPUSCULAR HGB CONC 33.8 g/dL (32.0-36.0); MEAN CORPUSCULAR VOLUME 94 fl (80-97); MONOCYTES % (AUTO) 5.1 % (3-13); PLATELET COUNT 143 10^3/uL (150-450); RED BLOOD COUNT 3.91 10^6/uL (3.72-5.28); RED CELL DISTRIBUTION WIDTH 13.2 % (11.5-14.0); SEGMENTED NEUTROPHILS % (AUTO) 55.3 % (42-78); TOTAL CELLS COUNTED % (AUTO) 100 %; WHITE BLOOD COUNT 6.5 10^3/uL (4.0-10.5)
[2019-01-05 13:33] LABS: ALBUMIN 3.9 g/dL (3.5-5.0); ALKALINE PHOSPHATASE 131 U/L (38-126); ANION GAP 9 (5-19); ASPARTATE AMINO TRANSFERASE 49 U/L (14-36); BILIRUBIN,DIRECT 0.2 mg/dL (0.0-0.4); BILIRUBIN,TOTAL 0.5 mg/dL (0.2-1.3); BLOOD UREA NITROGEN 14 mg/dL (7-20); CALCIUM 9.6 mg/dL (8.4-10.2); CARBON DIOXIDE 27 mmol/L (22-30); CHLORIDE 104 mmol/L (98-107); GLUCOSE 324 mg/dL (75-110); POTASSIUM 4.4 mmol/L (3.6-5.0)
== END ==
LOC: CCC 12:14
DX: E11.8 Type 2 diabetes mellitus with unspecified complications (principal); I10 Essential (primary) hypertension
CPT/HCPCS: 36415; 80053; 83036; 84443; 85025

== ENCOUNTER 2019-06-06 15:57 | Emergency (ER) | payer MEDICAID, OTHER ==
--- NOTE | 2019-06-06 16:27 | ER Document Report ---
ED Medical Screen (RME) - General Chief Complaint: Blurred Vision Stated Complaint: BLURRY VISION/POSS HIGH BP Time Seen by Provider: 06/06/19 16:20 Primary Care Provider: MODE PEREZ [Primary Care Provider] - Follow up as needed Notes: Patient is a 64-year-old female with a history of diabetes, cirrhosis of the liver, and hypertension who presents emergency department with blurred vision and generally not feeling well. Patient states that she used to have a drinking and cigarette smoking problem and over the past week she went back to smoking and drinking. She states that every time that she would try to eat, it would come back up. This started yesterday. Exam: Soft, nontender abdomen. I have greeted and performed a rapid initial assessment of this patient. A comprehensive ED assessment and evaluation of the patient, analysis of test results and completion of medical decision making process will be conducted by an additional ED providers. TRAVEL OUTSIDE OF THE [place] IN LAST 30 DAYS: No - Related Data Allergies/Adverse Reactions: No Known Allergies Allergy (Verified 06/06/19 16:19) Past Medical History - Social History Chew tobacco use (# tins/day): No Frequency of alcohol use: Heavy Drug Abuse: None - Past Medical History Cardiac Medical History: Reports: Hx Hypertension Endocrine Medical History: Reports: Hx Diabetes Mellitus Type 2. Denies: Hx Diabetes Mellitus Type 1 Renal/ Medical History: Denies: Hx Peritoneal Dialysis Psychiatric Medical History: Reports: Hx Depression Past Surgical History: Reports: Hx Cholecystectomy - Immunizations Hx Diphtheria, Pertussis, Tetanus Vaccination: Yes Physical Exam - Vital signs Vitals: Temp Pulse Resp BP Pulse Ox 97.9 F 112 H 18 124/71 100 06/06/19 16:03 06/06/19 16:03 06/06/19 16:03 06/06/19 16:03 06/06/19 16:03 Course - Vital Signs Vital signs: Temp Pulse Resp BP Pulse Ox 97.9 F 112 H 18 124/71 100 06/06/19 16:03 06/06/19 16:03 06/06/19 16:03 06/06/19 16:03 06/06/19 16:03 Doctor's Discharge - Discharge Referrals: MODE PEREZ [Primary Care Provider] - Follow up as needed
[2019-06-06 17:00] LABS: ABSOLUTE LYMPHOCYTES (AUTO) 1.9 10^3/uL (0.5-4.7); ABSOLUTE MONOCYTES (AUTO) 0.4 10^3/uL (0.1-1.4); ABSOLUTE NEUT (AUTO) 4.8 10^3/uL (1.7-8.2); BASOPHILS % (AUTO) 0.5 % (0-2); EOSINOPHILS % (AUTO) 0.3 % (0-6); HEMATOCRIT 45.2 % (36.0-47.0); HEMOGLOBIN 16.2 g/dL (12.0-15.5); MEAN CORPUSCULAR HEMOGLOBIN 33.2 pg (27.0-33.4); MEAN CORPUSCULAR HGB CONC 35.8 g/dL (32.0-36.0); MEAN CORPUSCULAR VOLUME 93 fl (80-97); MONOCYTES % (AUTO) 5.2 % (3-13); PLATELET COUNT 110 10^3/uL (150-450); RED BLOOD COUNT 4.88 10^6/uL (3.72-5.28); TOTAL CELLS COUNTED % (AUTO) 100 %; WHITE BLOOD COUNT 7.2 10^3/uL (4.0-10.5)
[2019-06-06 17:15] LABS: ALBUMIN 4.4 g/dL (3.5-5.0); ALKALINE PHOSPHATASE 303 U/L (38-126); ANION GAP 13 (5-19); ASPARTATE AMINO TRANSFERASE 566 U/L (14-36); BILIRUBIN,DIRECT 0.4 mg/dL (0.0-0.4); BILIRUBIN,TOTAL 1.4 mg/dL (0.2-1.3); BLOOD UREA NITROGEN 31 mg/dL (7-20); CALCIUM 9.3 mg/dL (8.4-10.2); CARBON DIOXIDE 32 mmol/L (22-30); CHLORIDE 83 mmol/L (98-107); GLUCOSE 246 mg/dL (75-110); POTASSIUM 3.6 mmol/L (3.6-5.0); TOTAL PROTEIN 8.4 g/dL (6.3-8.2)
[2019-06-06 17:22] LABS: APPEARANCE,URINE SLIGHTLY-CLOUDY; BILIRUBIN,URINE NEGATIVE (NEGATIVE); COLOR,URINE YELLOW; GLUCOSE, URINE NEGATIVE (NEGATIVE); KETONES,URINE NEGATIVE (NEGATIVE); LEUKOCYTE ESTERASE,URINE SMALL (NEGATIVE); NITRITE,URINE NEGATIVE (NEGATIVE); PROTEIN,URINE NEGATIVE (NEGATIVE); URINE SPECIFIC GRAVITY 1.008
--- NOTE | 2019-06-06 19:48 | ER Document Report ---
ED General - General Chief Complaint: Blurred Vision Stated Complaint: BLURRY VISION/POSS HIGH BP Time Seen by Provider: 06/06/19 16:20 Primary Care Provider: [facility] [NO LOCAL MD] - Follow up as needed LOCO JIM MD [ACTIVE STAFF] - Follow up as needed TRAVEL OUTSIDE OF THE [place] IN LAST 30 DAYS: No - HPI Onset: Other - over the last week Onset/Duration: Gradual Quality of pain: Achy, Burning Severity: Mild Pain Level: 2 Associated symptoms: Other - patient recently starting drinking heavily again Exacerbated by: Other - Drinking alcohol Relieved by: Denies Similar symptoms previously: Yes - with prior alcohol binges Recently seen / treated by doctor: No Notes: 64 year old female with a history of alcohol abuse, diabetes, and cirrhosis who recently started drinking heavily again here for weakness, dizziness, mild abdominal pains, and mild blurry vision. The patient thinks she is feeling this way since she started drinking again. The patient says she has been binging for about a week now. The patient has been nauseated and she has not been able to keep much of anything down. The patient denies fevers, chills, sweats. The patient has no PCP at the moment and she is using outdated insulin as well. The patient knows her blood sugars have been high as well. - Related Data Allergies/Adverse Reactions: No Known Allergies Allergy (Verified 06/06/19 16:19) Past Medical History - General Information source: Patient - Social History Smoking Status: Current Every Day Smoker Chew tobacco use (# tins/day): No Frequency of alcohol use: Heavy Drug Abuse: None Family History: Reviewed & Not Pertinent Patient has suicidal ideation: No Patient has homicidal ideation: No - Past Medical History Cardiac Medical History: Reports: Hx Hypertension Endocrine Medical History: Reports: Hx Diabetes Mellitus Type 2. Denies: Hx Diabetes Mellitus Type 1 Renal/ Medical History: Denies: Hx Peritoneal Dialysis Psychiatric Medical History: Reports: Hx Depression Past Surgical History: Reports: Hx Cholecystectomy - Immunizations Hx Diphtheria, Pertussis, Tetanus Vaccination: Yes Review of Systems - Review of Systems Constitutional: Malaise, Weakness EENT: No symptoms reported Cardiovascular: No symptoms reported Respiratory: No symptoms reported Gastrointestinal: Abdominal pain, Nausea Genitourinary: No symptoms reported Female Genitourinary: No symptoms reported Musculoskeletal: No symptoms reported Skin: No symptoms reported Hematologic/Lymphatic: No symptoms reported Neurological/Psychological: No symptoms reported -: Yes All other systems reviewed and negative Physical Exam - Vital signs Vitals: Temp Pulse Resp BP Pulse Ox 97.9 F 112 H 18 124/71 100 06/06/19 16:03 06/06/19 16:03 06/06/19 16:03 06/06/19 16:03 06/06/19 16:03 - Notes Notes: GENERAL: Well-appearing, well-nourished and in no acute distress. HEAD: Atraumatic, normocephalic. EYES: Pupils equal round and reactive to light, extraocular movements intact, sclera anicteric, conjunctiva are normal. ENT: Nares patent, oropharynx clear without exudates. Moist mucous membranes. NECK: Normal range of motion, supple without lymphadenopathy or JVD. LUNGS: Breath sounds clear to auscultation bilaterally and equal. No wheezes rales or rhonchi. HEART: Regular rate and rhythm without murmurs, rubs or gallops. ABDOMEN: Soft, nontender, normoactive bowel sounds. No guarding, no rebound. No masses appreciated. EXTREMITIES: Normal range of motion, no pitting or edema. No clubbing or cyanosis. NEUROLOGICAL: Cranial nerves II through XII grossly intact. Normal speech, normal gait. PSYCH: Normal mood, normal affect. SKIN: Warm, Dry, normal turgor, no rashes or lesions noted. Course - Re-evaluation Re-evalutation: 06/07/19 04:18 The patient labs are mostly all slightly abnormal likely due to her recent alcohol binge. The patient knows she has a drinking problem and she knows she has alcoholic hepatitis and cirrhosis because of it. The patient has been using outdated insulin as well. Will re-prescribe the patient her Lantus (she takes 20 units qhs) and will refer the patient to a PCP for further management. Patient was told her LFTs are elevated today and she needs to have them rechecked. US of her RUQ shows no acute process. - Vital Signs Vital signs: Temp Pulse Resp BP Pulse Ox 98.2 F 92 20 118/73 100 06/06/19 21:42 06/06/19 21:40 06/06/19 22:01 06/06/19 22:01 06/06/19 22:01 - Laboratory Result Diagrams: 06/06/19 16:33 06/06/19 16:33 Laboratory results interpreted by me: 06/06/19 06/06/19 06/06/19 16:33 16:33 16:33 Hgb 16.2 H Plt Count 110 L Sodium 127.5 L Chloride 83 L Carbon Dioxide 32 H BUN 31 H Est GFR ( Amer) 54 L Est GFR (MDRD) Non-Af 45 L Glucose 246 H POC Glucose Total Bilirubin 1.4 H AST 566 H ALT 427 H Alkaline Phosphatase 303 H Total Protein 8.4 H Urine Blood SMALL H Urine Urobilinogen 2.0 H Ur Leukocyte Esterase SMALL H 06/06/19 06/06/19 19:29 22:44 Hgb Plt Count Sodium Chloride Carbon Dioxide BUN Est GFR ( Amer) Est GFR (MDRD) Non-Af Glucose POC Glucose 179 H 140 H Total Bilirubin AST ALT Alkaline Phosphatase Total Protein Urine Blood Urine Urobilinogen Ur Leukocyte Esterase - Diagnostic Test Radiology reviewed: Image reviewed, Reports reviewed - EKG Interpretation by Me EKG shows normal: Sinus rhythm, [place], Intervals, QRS Complexes, ST-T Waves Rate: Normal Rhythm: NSR Discharge - Discharge Clinical Impression: Hyperglycemia Diabetes Qualifiers: Diabetes mellitus type: type 2 Diabetes mellitus half-way insulin use: unspecified long term care administrator insulin use status Diabetes mellitus complication status: with other specified complication Qualified Code(s): E11.69 - Type 2 diabetes mellitus with other specified complication Alcoholic hepatitis Qualifiers: Ascites presence: without ascites Qualified Code(s): K70.10 - Alcoholic hepatitis without ascites Condition: Stable Disposition: HOME, SELF-CARE Instructions: Alcoholic Hepatitis ([facility]), Diabetes ([facility]) Additional Instructions: Take insulin as previously prescribed. Stop drinking alcohol. Follow up with your primary care doctor or one of the primary care doctors listed in your discharge paperwork. Bring your lab work with you to your doctor's appointment to go over everything. Prescriptions: Insulin Glargine,Hum.rec.anlog [Lantus Insulin 100 Unit/mL Insulin Pen] 20 unit SUBCUT QHS #10 ml Referrals: [facility] [NO LOCAL MD] - Follow up as needed LOCO JIM MD [ACTIVE STAFF] - Follow up as needed
[2019-06-06] MEDS ORDERED: NORMAL SALINE 1000 ML 1,000 ML IV ONE (19:56)
[2019-06-06 20:22] LABS: PROTHROMBIN TIME 14.3 SEC (11.4-15.4)
[2019-06-06 20:23] LABS: PARTIAL THROMBOPLASTIN TIME 27.7 SEC (23.5-35.8)
--- NOTE | 2019-06-06 21:32 | RADIOLOGY REPORT (SQ) ---
US ABDOMEN LIMITED CLINICAL STATEMENT: rule out gallstones and liver problems COMPARISON: CT abdomen pelvis dated 04/26/2018. FINDINGS: Pancreatic duct is significantly dilated measuring up to 1 cm. No suspicious pancreatic lesions. Aorta and IVC are within normal limits. Liver is 13 cm in length. No focal hepatic lesions. Portal vein is patent with hepatopedal flow. Status post cholecystectomy. No significant biliary dilatation with CBD measuring centimeters. Right kidney measures 9.5 cm in length. No right hydronephrosis. IMPRESSION: Status post cholecystectomy. Pancreatic ductal dilatation is chronic and unchanged from prior study, due to chronic pancreatitis. No biliary dilatation. No right upper quadrant fluid collections.
--- NOTE | 2019-06-06 22:46 | EKG REPORT ---
SEVERITY:- BORDERLINE ECG - SINUS TACHYCARDIA BORDERLINE PROLONGED QT INTERVAL : Confirmed by: Sherrie Roberts MD 06-Jun-2019 22:45:32
[2019-06-06 22:50] VITALS: BP 118/73
== END 2019-06-06 22:54 | disposition home or self-care (01) ==
LOC: ER 15:57
DX: K70.10 Alcoholic hepatitis without ascites (principal); E11.65 Type 2 diabetes mellitus with hyperglycemia; E11.69 Type 2 diabetes mellitus with other specified complication; H53.8 Other visual disturbances; R53.1 Weakness; R42 Dizziness and giddiness; R10.9 Unspecified abdominal pain; F17.200 Nicotine dependence, unspecified, uncomplicated; I10 Essential (primary) hypertension
CPT/HCPCS: 93005; 99285; 96360; 36415; 82962; 83690; 85025; 85610; 85730; 80053; 81001; 76705; 93010; J7030

== ENCOUNTER → 2019-06-17 | Outpatient (CLI) | payer MEDICAID, OTHER ==
--- NOTE | 2019-06-17 14:55 | RADIOLOGY REPORT (SQ) ---
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 Oral contrast. Images reviewed with lung, soft tissue, and bone win dows. Reconstructed coronal and sagittal MPR images reviewed. Delayed images for evaluation of the ur inary system also acquired. All images stored on PACS. All CT scanners at this facility use dose modulation, iterative reconstruction, and/or weight based d osing when appropriate to reduce radiation dose to as low as reasonably achievable (ALARA). [facility]: Dose Right [facility]: CareDose [facility]: Dose Right [facility]: Teradose 4D [facility]: Vizibility CONTRAST TYPE AND DOSE: contrast/concentration: Isovue 350.00 mg/ml; Total Contrast Delivered: 70.0 ml; Total Saline Delivered: 65.0 ml RENAL FUNCTION: BUN 31 creatinine 1.21 RADIATION DOSE: CT Rad equipment meets quality standard of care and radiation dose reduction techniq ues were employed. CTDIvol: 3.5 - 3.5 mGy. DLP: 336 mGy-cm.. LIMITATIONS: None. FINDINGS: LOWER CHEST: No significant findings. No nodules or infiltrates. LIVER: Normal size. No masses. No dilated ducts. SPLEEN: Normal size. No focal lesions. PANCREAS: There is significant pancreatic ductal dilatation. There are calcifications in the pancrea s. Cannot exclude an ill-defined low-density lesion in the head of the pancreas that shows no signif icant change. GALLBLADDER: Surgically absent. The common bile duct is dilated. ADRENAL GLANDS: No significant masses or asymmetry. RIGHT KIDNEY AND URETER: No solid masses. No significant calcifications. No hydronephrosis or hyd roureter. LEFT KIDNEY AND URETER: No solid masses. No significant calcifications. No hydronephrosis or hydr oureter. AORTA AND VESSELS: No aneurysm. No dissection. Renal arteries, SMA, celiac without stenosis. RETROPERITONEUM: No retroperitoneal adenopathy, hemorrhage or masses. BOWEL AND PERITONEAL CAVITY: No masses or inflammatory changes. No free fluid or peritoneal masses. APPENDIX: Not identified. PELVIS: No mass. No free fluid. Normal bladder. ABDOMINAL WALL: No masses. No hernias. BONES: Degenerative joint disease in the left hip. OTHER: No other significant finding. IMPRESSION: 1. There is dilatation of the pancreatic duct and the common bile duct. Cannot exclude an ill-defined low-density lesion in the head of the pancreas. There does not appear to be a signif icant interval change. Pancreatic calcifications are present suggesting chronic pancreatitis. 2. Degenerative joint disease in the left hip. TECHNICAL DOCUMENTATION: JOB ID: [id number] Quality ID # 436: Final reports with documentation of one or more dose reduction techniques (e.g., Au tomated exposure control, adjustment of the mA and/or kV according to patient size, use of iterative reconstruction technique) 2010 [employer]- All Rights Reserved Reading location - IP/workstation name: [email or web address]
== END ==
LOC: RAD 12:50
PROVIDERS: ATTEND Internal Medicine
DX: K86.89 Other specified diseases of pancreas (principal); M16.12 Unilateral primary osteoarthritis, left hip
CPT/HCPCS: 74177

== ENCOUNTER → 2019-07-05 | Outpatient (CLI) | payer MEDICAID, OTHER ==
--- NOTE | 2019-07-05 10:57 | WOMENS IMAGING REPORT ---
EXAM DESCRIPTION: 3D SCREENING MAMMO BILAT IMAGES COMPLETED DATE/TIME: 07/05/2019 9:24 am REASON FOR STUDY: Z12.31 SCREENING MAMMO Z12.31 ENCNTR SCREEN MAMMOGRAM FOR MALIGNANT NEOPLASM OF B RE COMPARISON: 2008, 2011 EXAM PARAMETERS: Views: Standard craniocaudal and mediolateral oblique views of each breast recorded using digital acquisition and breast tomosynthesis. Read with the assistance of CAD. .[facility] - R2 Chronometer Adjuster Version 9.2 LIMITATIONS: None. FINDINGS: No suspicious masses, suspicious calcifications or architectural distortion. No areas of c oncern. IMPRESSION: NEGATIVE MAMMOGRAM. BIRADS 1. BREAST DENSITY: b. There are scattered areas of fibroglandular density. BIRAD: ASSESSMENT: 1 NEGATIVE RECOMMENDATION: ROUTINE SCREENING COMMENT: The patient has been notified of the results by letter per MQSA requirements. Additional no tification policies are in place for contacting patient with suspicious or incomplete findings. Quality ID #225: The [employer] recommends an annual screening mammogram for women aged 40 years or over. This facility utilizes a reminder system to ensure that all patients receive reminder letters, and/or direct phone calls for appointments. This includes reminders for routine scr eening mammograms, diagnostic mammograms, or other Breast Imaging Interventions when appropriate. Th is patient will be placed in the appropriate reminder system. TECHNICAL DOCUMENTATION: FINDING NUMBER: (1) ASSESSMENT: (1) JOB ID: [id number] 2010 [employer]- All Rights Reserved Reading location - IP/workstation name: [email or web address]
== END ==
LOC: WI 08:40
PROVIDERS: ATTEND Internal Medicine
DX: Z12.31 Encounter for screening mammogram for malignant neoplasm of breast (principal)
CPT/HCPCS: 77063; 77067

== ENCOUNTER → 2019-10-19 | Outpatient (CLI) | payer MEDICAID, OTHER ==
--- NOTE | 2019-10-19 14:44 | RADIOLOGY REPORT (SQ) ---
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 TECHNIQUE: CT scan of the chest performed using helical scanning technique with dynamic intravenous contrast injection. Images reviewed with lung, soft tissue and bone windows. Reconstructed coronal and sagittal MPR and MIP images reviewed. All images stored on PACS. All CT scanners at this facility use dose modulation, iterative reconstruction, and/or weight based d osing when appropriate to reduce radiation dose to as low as reasonably achievable (ALARA). [facility]: Dose Right [facility]: CareDose [facility]: Dose Right [facility]: Teradose 4D [facility]: [employer] RENAL FUNCTION: GFR > 60. RADIATION DOSE: CT Rad equipment meets quality standard of care and radiation dose reduction techniq ues were employed. CTDIvol: 4.5 - 4.5 mGy. DLP: 632 mGy-cm. . LIMITATIONS: None. FINDINGS: LUNGS AND PLEURA: Mild emphysema. No opacities, nodules, masses. No pneumothorax. No eff usions. HILAR AND MEDIASTINAL STRUCTURES: No identified masses or abnormal nodes. HEART AND VASCULAR STRUCTURES: No aneurysm or dissection. No central pulmonary emboli. No pericardi al effusion. HARDWARE: None in the chest. UPPER ABDOMEN: See separate report of the CT of the abdomen. THYROID AND OTHER SOFT TISSUES: No masses. No adenopathy. BONES: No significant finding. OTHER: No other significant finding. IMPRESSION: No evidence of metastatic disease. TECHNICAL DOCUMENTATION: JOB ID: [id number] Quality ID # 436: Final reports with documentation of one or more dose reduction techniques (e.g., Au tomated exposure control, adjustment of the mA and/or kV according to patient size, use of iterative reconstruction technique) 2010 [employer]- All Rights Reserved Reading location - IP/workstation name: [email or web address]
--- NOTE | 2019-10-19 14:53 | RADIOLOGY REPORT (SQ) ---
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 No oral contrast. Images reviewed with lung, soft tissue, and bone windows. Reconstructed coronal and sagittal MPR images reviewed. Delayed images for evaluation of the urinary system also acquired. All images stored on PACS. All CT scanners at this facility use dose modulation, iterative reconstruction, and/or weight based d osing when appropriate to reduce radiation dose to as low as reasonably achievable (ALARA). [facility]: Dose Right [facility]: CareDose [facility]: Dose Right [facility]: Teradose 4D [facility]: [employer] CONTRAST TYPE AND DOSE: contrast/concentration: Isovue 350.00 mmol/ml; Total Contrast Delivered: 69. 0 ml; Total Saline Delivered: 65.0 ml RENAL FUNCTION: Creatinine 0.7 RADIATION DOSE: . LIMITATIONS: None. FINDINGS: LOWER CHEST: No significant findings. No nodules or infiltrates. LIVER: Normal size. No masses. No dilated ducts. SPLEEN: Normal size. No focal lesions. PANCREAS: Pancreatic calcifications. Significant dilatation of the pancreatic duct. Cannot exclude a low-density lesion in the head of the pancreas. GALLBLADDER: Surgically absent. ADRENAL GLANDS: No significant masses or asymmetry. RIGHT KIDNEY AND URETER: No solid masses. No significant calcifications. No hydronephrosis or hyd roureter. LEFT KIDNEY AND URETER: No solid masses. No significant calcifications. No hydronephrosis or hydr oureter. AORTA AND VESSELS: No aneurysm. No dissection. Renal arteries, SMA, celiac without stenosis. RETROPERITONEUM: No retroperitoneal adenopathy, hemorrhage or masses. BOWEL AND PERITONEAL CAVITY: No masses or inflammatory changes. No free fluid or peritoneal masses. APPENDIX: Not identified. PELVIS: No mass. No free fluid. Normal bladder. ABDOMINAL WALL: No masses. No hernias. BONES: Degenerative joint disease in the left hip. OTHER: No other significant finding. IMPRESSION: 1. Chronic pancreatitis with significant dilatation of the pancreatic duct. Cannot exc lude a low-density lesion in the head of the pancreas. 2. Degenerative joint disease in the left hip. 3. No other significant findings in the abdomen or pelvis. TECHNICAL DOCUMENTATION: JOB ID: [id number] Quality ID # 436: Final reports with documentation of one or more dose reduction techniques (e.g., Au tomated exposure control, adjustment of the mA and/or kV according to patient size, use of iterative reconstruction technique) 2010 [employer]- All Rights Reserved Reading location - IP/workstation name: [email or web address]
== END ==
LOC: RAD 08:36
PROVIDERS: ATTEND Physician Assistant
DX: C53.9 Malignant neoplasm of cervix uteri, unspecified (principal); K86.1 Other chronic pancreatitis; R10.9 Unspecified abdominal pain; R63.4 Abnormal weight loss; M16.12 Unilateral primary osteoarthritis, left hip
CPT/HCPCS: 71260; 74177; 82565

== ENCOUNTER → 2019-11-02 | Outpatient (CLI) | payer MEDICAID ==
--- NOTE | 2019-11-02 15:04 | RADIOLOGY REPORT (SQ) ---
EXAM DESCRIPTION: CHEST PA/LATERAL IMAGES COMPLETED DATE/TIME: 11/02/2019 2:49 pm REASON FOR STUDY: PRE-OP COMPARISON: 04/16/2018 EXAM PARAMETERS: NUMBER OF VIEWS: two views TECHNIQUE: Digital Frontal and Lateral radiographic views of the chest acquired. RADIATION DOSE: NA LIMITATIONS: none FINDINGS: LUNGS AND PLEURA: No opacities, masses or pneumothorax. No pleural effusion. MEDIASTINUM AND HILAR STRUCTURES: No masses or contour abnormalities. HEART AND VASCULAR STRUCTURES: Heart normal size. No evidence for failure. BONES: No acute findings. HARDWARE: None in the chest. OTHER: No other significant finding. IMPRESSION: NO SIGNIFICANT RADIOGRAPHIC FINDING IN THE CHEST. TECHNICAL DOCUMENTATION: JOB ID: [id number] 2010 [employer]- All Rights Reserved Reading location - IP/workstation name: [email or web address]
[2019-11-02 15:09] LABS: ABSOLUTE EOSINOPHILS # (AUTO) 0.1 10^3/uL (0.0-0.6); ABSOLUTE LYMPHOCYTES (AUTO) 1.3 10^3/uL (0.5-4.7); ABSOLUTE MONOCYTES (AUTO) 0.3 10^3/uL (0.1-1.4); ABSOLUTE NEUT (AUTO) 3.4 10^3/uL (1.7-8.2); BASOPHILS % (AUTO) 0.4 % (0-2); EOSINOPHILS % (AUTO) 1.8 % (0-6); HEMATOCRIT 37.1 % (36.0-47.0); HEMOGLOBIN 12.8 g/dL (12.0-15.5); LYMPHOCYTES % (AUTO) 25.9 % (13-45); MEAN CORPUSCULAR HEMOGLOBIN 32.7 pg (27.0-33.4); MEAN CORPUSCULAR HGB CONC 34.4 g/dL (32.0-36.0); MEAN CORPUSCULAR VOLUME 95 fl (80-97); MONOCYTES % (AUTO) 5.1 % (3-13); PLATELET COUNT 172 10^3/uL (150-450); RED BLOOD COUNT 3.91 10^6/uL (3.72-5.28); RED CELL DISTRIBUTION WIDTH 13.7 % (11.5-14.0); SEGMENTED NEUTROPHILS % (AUTO) 66.8 % (42-78); TOTAL CELLS COUNTED % (AUTO) 100 %; WHITE BLOOD COUNT 5.2 10^3/uL (4.0-10.5)
[2019-11-02 15:24] LABS: APPEARANCE,URINE CLOUDY; BILIRUBIN,URINE NEGATIVE (NEGATIVE); COLOR,URINE AMBER; GLUCOSE, URINE 50 mg/dL (NEGATIVE); KETONES,URINE TRACE mg/dL (NEGATIVE); LEUKOCYTE ESTERASE,URINE SMALL (NEGATIVE); NITRITE,URINE NEGATIVE (NEGATIVE); PROTEIN,URINE 30 mg/dL (NEGATIVE); URINE SPECIFIC GRAVITY 1.027
[2019-11-02 15:30] LABS: BLOOD UREA NITROGEN 6 mg/dL (7-20); CALCIUM 9.1 mg/dL (8.4-10.2); GLUCOSE 204 mg/dL (75-110); POTASSIUM 3.9 mmol/L (3.6-5.0)
[2019-11-02 15:36] LABS: ANION GAP 5 (5-19); CARBON DIOXIDE 26 mmol/L (22-30); CHLORIDE 106 mmol/L (98-107)
--- NOTE | 2019-11-03 08:36 | EKG REPORT ---
SEVERITY:- NORMAL ECG - SINUS RHYTHM : Confirmed by: Sherrie Roberts MD 03-Nov-2019 08:35:33
== END ==
LOC: OD 14:18
PROVIDERS: ATTEND Orthopaedic Surgery
DX: Z01.812 Encounter for preprocedural laboratory examination (principal); Z01.810 Encounter for preprocedural cardiovascular examination; Z01.811 Encounter for preprocedural respiratory examination; M17.12 Unilateral primary osteoarthritis, left knee
CPT/HCPCS: 36415; 71046; 80048; 81001; 83036; 85025; 93005; 93010

== ENCOUNTER 2019-11-29 06:27 | Inpatient (IN) | payer MEDICAID ==
[~2019-11-29 06:27] MED LIST: BUPIVACAINE INJ/PF LIPOSOME/PF 266 MG/20 ML SDV INJ PRN; CEFAZOLIN INJ 1 GM VIAL IV PRN; IBUPROFEN 800 MG in NORMAL SALINE 250 ML IV PRN; LACTATED RINGERS 1000 ML IV PRN; LIDOCAINE 0.5% INJ-PF (5 MG/ML) 50 ML SDV SUBCUT PRN; OXYCODONE HCL SR 10 MG TABLET PO PRN; PANTOPRAZOLE SODIUM 20 MG TABLET.DR PO PRN; VANCOMYCIN HCL 1,000 MG in DEXTROSE 5%-WATER 250 ML IV PRN
[2019-11-29] MEDS ORDERED: BUPIVACAINE HCL 0.25% /EPINEPHRINE INJ/PF 30 ML SDV ONE (07:15)
[2019-11-29] MEDS ORDERED: OXYCODONE HCL SR 10 MG TABLET PO ONE (07:50)
[2019-11-29] MEDS ORDERED: PANTOPRAZOLE SODIUM 20 MG TABLET.DR PO ONE (07:50)
[2019-11-29] MEDS ORDERED: CEFAZOLIN 1 GM/D5W RTU 1 GM/50 ML RTUPB IV ONE (07:51)
[2019-11-29] MEDS ORDERED: MIDAZOLAM 2 MG/2 ML INJ ONE ×2 (09:02→09:07)
[2019-11-29] MEDS ORDERED: FENTANYL CITRATE INJ/PF 100 MCG/2 ML AMPUL ONE ×2 (09:02→09:07)
[2019-11-29] MEDS ORDERED: LIDOCAINE 2% INJ-PF (20 MG/ML) 10 ML AMPUL ONE (09:07)
[2019-11-29] MEDS ORDERED: PROPOFOL INJ 200 MG/20 ML VIAL IV ONE (09:07)
[2019-11-29] MEDS ORDERED: ONDANSETRON HCL INJ/PF 4 MG/2 ML SDV ONE (09:07)
[2019-11-29] MEDS ORDERED: EPHEDRINE SULFATE INJ 50 MG/1 ML AMPULE ONE (09:08)
[2019-11-29] MEDS ORDERED: TRANEXAMIC ACID INJ/PF 1,000 MG/10 ML SDV ONE (09:08)
[2019-11-29] MEDS ORDERED: ROPIVACAINE HCL 0.5% INJ/PF (5 MG/1 ML) 30 ML SDV ONE (09:19)
[2019-11-29] MEDS ORDERED: ONDANSETRON HCL INJ/PF 4 MG/2 ML SDV IV PRN ×2 (09:55→10:53)
[2019-11-29] MEDS ORDERED: FENTANYL CITRATE INJ/PF 100 MCG/2 ML AMPUL IV PRN ×3 (09:55)
[2019-11-29] MEDS ORDERED: DIPHENHYDRAMINE HCL 50 MG/ML VIAL IV PRN ×2 (09:55→10:53)
[2019-11-29] MEDS ORDERED: MEPERIDINE HCL/PF INJ 25 MG/1 ML DISP.SYRIN IV PRN (09:55)
[2019-11-29] MEDS ORDERED: PROMETHAZINE HCL INJ 25 MG/1 ML VIAL IV PRN ×2 (09:55)
[2019-11-29] MEDS ORDERED: ZOLPIDEM TARTRATE 5 MG TABLET PO PRN (10:53)
[2019-11-29] MEDS ORDERED: TRANEXAMIC ACID INJ/PF 1,000 MG/10 ML SDV IV ONE (10:53)
[2019-11-29] MEDS ORDERED: MAG HYDROX/AL HYDROX/SIMETH SUSP 30 ML UDCUP PO PRN (10:53)
[2019-11-29] MEDS ORDERED: ACETAMINOPHEN 325 MG TABLET PO PRN (10:53)
[2019-11-29] MEDS ORDERED: ONDANSETRON 4 MG TAB.RAPDIS PO PRN (10:53)
[2019-11-29] MEDS ORDERED: RINGERS SOLUTION,LACTATED 1,000 ML IV PRN (10:53)
--- NOTE | 2019-11-29 10:53 | Operative Report ---
Operative Report DATE OF SURGERY: 11/29/19 PREOPERATIVE DIAGNOSIS: Left knee arthritis OPERATION: Left knee arthroplasty SURGEON: LEONARDO MURRIETA ANESTHESIA: Spinal TISSUE REMOVED OR ALTERED: Bone to pathology ESTIMATED BLOOD LOSS: 75 PROCEDURE: Implants used: Femur: Elisha triathlon size 5 CR cemented femur Tibia: 5 tibia Tibial liner: 9 mm CS insert Patella: 32 mm oval patella Procedure with the patient supine on the operating table the left the limb is prepped and draped in a sterile fashion. The limb was elevated for exsanguination and the tourniquet inflated to 280 torr. A standard midline median parapatellar approach the knee is taken. Access is gained to the femoral canal through the intercondylar notch. Intramedullary alignment instrumentation used to resect 10 mm of distal femur in 5 of valgus. Sizing guide indicated a size 5 femur. Appropriate cutting jig is then used to fashion anterior posterior and chamfer cuts. A trial reduction femurs performed and this is judged to be adequate. Attention was next turned to the tibia. Using an extra medullary alignment system 9 millimeters was resected off the lateral tibial plateau. This is sized to a size 5 tibia. A trial reduction was now performed with a 5 femur and a 5 tibia using a 9 millimeters spacer. It is full extension and central patellofemoral tracking. The articular surface the patella was next resected using an oscillating saw. All trial implants were removed. Polymethylmethacrylate is mixed and used to cement the above implants in place. On adequate curing the cement excess cement was removed the tourniquet was deflated hemostasis obtained the wound is then closed in layers using interrupted Vicryl followed by fahad. A sterile compressive dressing was applied and the patient returned to recovery room in satisfactory condition.
--- NOTE | 2019-11-29 12:22 | RADIOLOGY REPORT (SQ) ---
EXAM DESCRIPTION: KNEE LEFT 2 VIEWS IMAGES COMPLETED DATE/TIME: 11/29/2019 11:58 am REASON FOR STUDY: Post OP -Long Cassette in PACU M17.12 UNILATERAL PRIMARY OSTEOARTHRITIS, LEFT KNE E COMPARISON: None. NUMBER OF VIEWS: Two view(s). TECHNIQUE: Digital radiographic images of the left knee post-procedure. LIMITATIONS: None. FINDINGS: BONES: No worrisome or unexpected findings post-procedure. DEVICE: Total left knee arthroplasty. SOFT TISSUES: No worrisome findings. Expected postoperative soft tissue changes. IMPRESSION: 1. SATISFACTORY POSTOPERATIVE LEFT KNEE. TECHNICAL DOCUMENTATION: JOB ID: [id number] 2010 [employer]- All Rights Reserved Reading location - IP/workstation name: [email or web address]
[2019-11-29] MEDS ORDERED: DEXTROSE 40% GEL 15 GM TUBE X 2 PO PRN (12:30)
[2019-11-29] MEDS ORDERED: DEXTROSE 50%-WATER SYRINGE 12.5 GM/25 ML DOSE IV PRN (12:30)
[2019-11-29] MEDS ORDERED: GLUCAGON,HUMAN RECOMB 1 MG INJ IM PRN (12:30)
[2019-11-29] MEDS ORDERED: DEXTROSE 40% GEL 15 GM TUBE PO PRN (12:30)
[2019-11-29] MEDS ORDERED: DEXTROSE 50%-WATER SYRINGE 25 GM/50 ML DOSE IV PRN (12:30)
[2019-11-29] MEDS: IBUPROFEN 800 MG in NORMAL SALINE 250 ML IV SCH ×2 (15:53→22:42)
[2019-11-29] MEDS: INSULIN LISPRO 100 UNIT/ML 3 ML VIAL SUBCUT SCH ×2 (17:16→22:31)
[2019-11-29] MEDS: SENNOSIDES/DOCUSATE 8.6-50 MG 1 EACH TABLET PO SCH (17:16)
[2019-11-29] MEDS ORDERED: (PENDING PHARMACY ID) (Clonidine Hcl [Clonidine Hcl] 0.3 MG) PO SCH (18:00)
[2019-11-29] MEDS: OXYCODONE HCL IR 5 MG TABLET PO PRN (20:27)
[2019-11-29] MEDS ORDERED: INSULIN GLARGINE,HUM.REC.ANLOG 1,000 UNIT/10 ML VIAL (PYX) SUBCUT SCH (22:00)
[2019-11-29] MEDS ORDERED: TRAZODONE HCL 50 MG TABLET PO SCH (22:00)
[2019-11-29] MEDS ORDERED: INSULIN GLARGINE,HUM.REC.ANLOG 1,000 UNIT/10 ML VIAL SUBCUT SCH (22:00)
[2019-11-29] MEDS: OXYCODONE HCL SR 10 MG TABLET PO SCH (22:38)
[2019-11-29] MEDS: CLONIDINE HCL 0.2 MG TABLET PO SCH (22:41)
[2019-11-29] MEDS ORDERED: VANCOMYCIN HCL 1,000 MG in DEXTROSE 5%-WATER 250 ML IV ONE (22:53)
[2019-11-30] MEDS: OXYCODONE HCL IR 5 MG TABLET PO PRN (04:04)
[2019-11-30] MEDS ORDERED: PANTOPRAZOLE SODIUM 40 MG TABLET.DR PO SCH (06:00)
[2019-11-30] MEDS: IBUPROFEN 800 MG in NORMAL SALINE 250 ML IV SCH (06:50)
[2019-11-30 06:59] LABS: BLOOD UREA NITROGEN 7 mg/dL (7-20); CALCIUM 8.7 mg/dL (8.4-10.2); CARBON DIOXIDE 28 mmol/L (22-30); CHLORIDE 108 mmol/L (98-107); POTASSIUM 3.6 mmol/L (3.6-5.0)
[2019-11-30 07:03] LABS: ANION GAP 5 (5-19); GLUCOSE 64 mg/dL (75-110)
--- NOTE | 2019-11-30 07:14 | PDOC DISCHARGE SUMMARY ---
Impression - Admit/DC Date/PCP Admission Date/Primary Care Provider: 11/29/19 06:27 АЛЕКСАНДР REDDING MD Discharge Date: 11/30/19 - Additional Information Resuscitation Status: Full Code Discharge Diet: Regular Discharge Activity: Balance Activity w/Rest, No tub bath Referrals: LEONARDO MURRIETA MD [ACTIVE STAFF] - 12/14/19 8:00 am Home Medications: Trazodone HCl [Desyrel 50 mg Tablet] 50 mg PO HSP PRN 04/16/18 Insulin Glargine,Hum.rec.anlog [Lantus Insulin 100 Unit/mL Insulin Pen] 20 unit SUBCUT QHS #10 ml 06/06/19 Lisinopril [Prinivil] 10 mg PO DAILY 11/25/19 Ascorbic Acid/Collagen Hydr [Collagen Plus Vit C Capsule] 1 cap PO DAILY 11/29/19 Cholecalciferol (Vitamin D3) [Vitamin D3 400 Unit Tablet] 400 unit PO DAILY 11/29/19 Clonidine HCl 0.3 mg PO BID 11/29/19 Multivitamin 1 each PO DAILY 11/29/19 Tramadol HCl [Ultram 50 mg Tablet] 50 mg PO TIDP PRN 11/29/19 Vitamin B Complex [Balanced B-50] 1 each PO DAILY 11/29/19 History of Present Illiness History of Present Illness: VELMA MACDONALD is a 64 year old female 64-year-old black female with progressive left knee pain and function disability second osteoarthritis. Patient is admitted for elective left knee arthroplasty. Hospital Course Hospital Course: Patient is admitted through the operating where she undergoes uncomplicated left knee arthroplasty. She is returned to the floor in satisfactory patient. She is seen by physical therapy on the day of surgery makes progress on ambulation. Complains of pain overnight. Compressive dressing was removed on the first postoperative morning. Underlying OpSite dressing is clean dry and intact. Physical Exam Vital Signs: Temp Pulse Resp BP Pulse Ox 36.9 C 86 16 125/60 100 11/30/19 04:00 11/30/19 04:00 11/30/19 04:00 11/30/19 04:00 11/30/19 04:00 Intake & Output 11/29/19 11/30/19 12/01/19 06:59 06:59 06:59 Intake Total 3890 Output Total 50 Balance 3840 Weight 68.9 kg General appearance: PRESENT: mild distress Head exam: PRESENT: normocephalic Respiratory exam: PRESENT: unlabored Cardiovascular exam: PRESENT: RRR Pulses: PRESENT: +1 pedal pulses bilateral Vascular exam: PRESENT: normal capillary refill GI/Abdominal exam: PRESENT: soft Rectal exam: PRESENT: deferred Results Laboratory Results: Sodium 140.2 mmol/L (137-145) 11/30/19 05:53 Potassium 3.6 mmol/L (3.6-5.0) 11/30/19 05:53 Chloride 108 mmol/L (98-107) H 11/30/19 05:53 Carbon Dioxide 28 mmol/L (22-30) 11/30/19 05:53 Anion Gap 5 (5-19) 11/30/19 05:53 BUN 7 mg/dL (7-20) 11/30/19 05:53 Creatinine 0.78 mg/dL (0.52-1.25) 11/30/19 05:53 Est GFR ( Amer) > 60 (>60) 11/30/19 05:53 Est GFR (MDRD) Non-Af > 60 (>60) 11/30/19 05:53 Glucose 64 mg/dL (75-110) L 11/30/19 05:53 POC Glucose 72 mg/dL (70-110) 11/30/19 05:54 Calcium 8.7 mg/dL (8.4-10.2) 11/30/19 05:53 COVID-19 Source NASOPHARYNGEAL 11/25/19 09:00 COVID-19 (SHARON) NOT DETECTED 11/25/19 09:00 Impressions: Knee X-Ray 11/29/19 10:55 IMPRESSION: 1. SATISFACTORY POSTOPERATIVE LEFT KNEE. Plan Plan of Treatment: Patient to be discharged home in a weightbearing style basis with home health services and DME. Follow-up Dr. Murrieta and [facility] for surgery in 2 weeks for staple removal. Stroke Is this a Stroke Patient?: No Stroke Pt being discharged on Anti-thrombolytic therapy?: Yes Acute Heart Failure - Is this a Heart Failure Patient?: No
[2019-11-30] MEDS: INSULIN LISPRO 100 UNIT/ML 3 ML VIAL SUBCUT SCH (08:52)
[2019-11-30] MEDS: CLONIDINE HCL 0.2 MG TABLET PO SCH (09:03)
[2019-11-30] MEDS: OXYCODONE HCL SR 10 MG TABLET PO SCH (09:10)
[2019-11-30] MEDS: SENNOSIDES/DOCUSATE 8.6-50 MG 1 EACH TABLET PO SCH (09:10)
[2019-11-30] MEDS ORDERED: ASPIRIN 81 MG TABLET, ENT COATED PO SCH (10:00)
[2019-11-30] MEDS ORDERED: PRENATAL VITAMIN W DHA CAPSULE PO SCH (10:00)
[2019-11-30] MEDS ORDERED: LISINOPRIL 10 MG TABLET PO SCH (10:00)
[2019-11-30 13:52] VITALS: BP 128/59
== END 2019-11-30 13:02 | disposition home health service (06) | DRG 470 ==
LOC: INOR 06:27 → 4S 12:42
PROVIDERS: ADMIT Orthopaedic Surgery; ATTEND Orthopaedic Surgery
PROC: 0SRD0J9 Replacement of Left Knee Joint with Synthetic Substitute, Cemented, Open Approach (ICD-10-PCS; principal; 2019-11-29 09:00)
DX: M17.12 Unilateral primary osteoarthritis, left knee (principal); F32.9 Major depressive disorder, single episode, unspecified; I10 Essential (primary) hypertension; E11.9 Type 2 diabetes mellitus without complications; Z11.59 Encounter for screening for other viral diseases; Z79.4 Long term (current) use of insulin; Z79.899 Other long term (current) drug therapy; Z85.41 Personal history of malignant neoplasm of cervix uteri
CPT/HCPCS: 01402; 36415; 64447; 76942; 80048; 82962; 87635; 88305; 88311; 94799; C1713; C1776; C9803; J0690; J1741; J1815; J2250; J2405; J2704; J2795; J3010; J3370; J3490; J7050; J7060